=== PATIENT | female | born 1950 | race Caucasian/White ===

== ENCOUNTER → 2020-01-30 15:20 | Outpatient (BNVA) | payer OTHER, MEDICARE, SELFPAY | PROVIDERS: Visit Provider Registered Nurse | DX: I48.91 Unspecified atrial fibrillation (principal); Z79.899 Other long term (current) drug therapy | CPT/HCPCS: 84443 ==

== ENCOUNTER → 2020-02-06 10:17 | Outpatient (BNVA) | payer OTHER, SELFPAY | PROVIDERS: Visit Provider Registered Nurse | DX: I48.91 Unspecified atrial fibrillation (principal); Z01.818 Encounter for other preprocedural examination | CPT/HCPCS: 80053; 83735; 83880; 84439; 84443; 84481; 85025 ==

== ENCOUNTER → 2020-02-08 11:04 | Outpatient (BNVA) | payer MEDICARE, SELFPAY | PROVIDERS: Visit Provider Internal Medicine Cardiovascular Disease | DX: Z11.59 Encounter for screening for other viral diseases (principal); Z01.818 Encounter for other preprocedural examination | CPT/HCPCS: 87635 ==

== ENCOUNTER 2020-02-11 10:37 | Day surgery (SDC) | payer MEDICARE, SELFPAY ==
[2020-02-07 11:05] VITALS: BMI 26.6
--- NOTE | 2020-02-11 11:36 | ANES.PREANE2 ---
Pre-Anesthetic Assessment Pre-Anesthetic Assessment: Height/Weight: Height 1.65 m Weight 72.575 kg Preop Diagnosis: Atrial fibrillation Proposed Procedure: Operation Date: 02/11/20 12:00 Proposed Procedures p HILARIO 91484 I48.91(Not Applicable) - Melida Escobedo MD Familial anesthetic complications: None Was Beta Tatiana taken within 24 hours: Yes Last intake: Intake Last Liquid Date 02/11/20 Last Liquid Time 09:00 Last Solid Date 02/10/20 Last Solid Time 22:00 Social: Social History: No alcohol and No tobacco Exam: Pre-Anes Outpt Exam: alert, oriented x 3, clear to auscultation bilaterally and regular rate & rhythm Airway: Cervical ROM: WNL MP: 2 Dentition: Full CV/HEM: CV/HEM: Afib Comments: mitral valve prolapse Metabolic: Metabolic: Hyperlipidemia Anesthetic Plan: ASA status: 2 Anesthesia: MAC Risk of > 500 ml blood loss (7ml/kg in children): No Other Pertinent Information: former smoker PFSH Anesthesia PFSH: Medical History Anxiety Former smoker History of mitral valve prolapse Hyperlipidemia Restless leg syndrome Surgical History History of tonsillectomy Family History Grandmother Diabetes Father Heart disease Hyperlipidemia Hypertension Grandfather Cancer Social History Smoking and tobacco status: former smoker Quit status (tobacco): has quit using tobacco Year quit tobacco: 2006 Alcohol intake: never Adopted: No Caregiver/support person: No Lives independently: No Household members: spouse Housing: House Marital status: service: No Current occupational status: retired History of recent travel: No Sexually active: Yes Current gender identity: Female Data Anesthesia Cardiac Studies: No Data to Display
--- NOTE | 2020-02-11 11:50 | USCV_ITS ---
Eda Hanks Age: 69 Gender: F : 1950 Exam Date: 02/11/2020 12:08 Ordering Phys: Melida Escobedo MD ([email or web address]) Technologist: Tripp Armendariz [place] [facility] [place]ication: A-FIB, THROMBUS BP: 100 / 70 HR: 98 Rhythm: Sinus Technical Quality: Adequate MEASUREMENTS (Male / Female) Normal Values Medications Patient given IV sedation by anesthesia service, for details please refer to the anesthesia report. Complications None. Proc. Components HILARIO was performed at multiple levels. FINDINGS Left Ventricle Normal left ventricular cavity size. Normal left ventricular systolic function. Left ventricular ejection fraction is estimated at 65-70 %. No regional wall motion abnormalities. Right Ventricle Normal right ventricular size and systolic function. Right ventricular systolic pressure 50 mmHg. Right Atrium Mildly increased right atrial size. Left Atrium Moderately increased left atrial size. There is bowing of the interatrial septum to left. No evidence of left atrial thrombus. LA Appendage Normal left atrial appendage. Decreased flow velocities in the left atrial appendage. No thrombus visualized in the left atrial appendage. IA Septum Normal interatrial septum. No evidence of patent foramen ovale or atrial septal defect based on color Doppler as well as agitated saline (bubble) study. Mitral Valve Moderately thickened mitral valve with severe prolapse of P1 and P2 scallops (P2>P1) of posterior mitral valve leaflet. Ruptured chordae attached P2 scallop. Severe eccentric anteriorly directed mitral valve regurgitation. No mitral valve stenosis. Aortic Valve Mildly thickened trileaflet aortic valve. No aortic valve stenosis. No aortic valve regurgitation. Tricuspid Valve Structurally normal tricuspid valve. Mild to moderate tricuspid valve regurgitation. Pulmonic Valve Structurally normal pulmonic valve. Trace pulmonary valve regurgitation. Pericardium No pericardial effusion. Aorta Normal-sized aortic root. No evidence of aortic dilation aneurysm or dissection. Grade 2 atheroma noted in proximal descending aorta. CONCLUSIONS 1. Normal left ventricular cavity size. Normal left ventricular systolic function. Left ventricular ejection fraction is estimated at 65-70 %. No regional wall motion abnormalities. 2. Normal right ventricular size and systolic function. 3. Moderately increased left atrial size. 4. Moderately thickened mitral valve with severe prolapse of P1 and P2 scallops (P2>P1) of posterior mitral valve leaflet. Ruptured chordae attached to P2 scallop. Severe eccentric anteriorly directed mitral valve regurgitation. 5. Mild to moderate tricuspid valve regurgitation. 6. Moderate pulmonary hypertension with pulmonary artery pressure estimated at 50 mmHg. 7. No prior similar studies to compare. Melida Escobedo MD (Electronically Signed) Final Date: 15 February 2020 10:11 S
[2020-02-11] MEDS: sodium chloride 0.9% 1,000 ML 30 ML IV (11:53)
[2020-02-11 11:58] VITALS: BP 116/72; PULSE 98; RESP 18; TEMP 36.3; O2SAT 98
[2020-02-11 12:12] LABS: Anion Gap 15.8 (5-19); Blood Urea Nitrogen 21 mg/dL (8-23); Calcium 8.9 mg/dL (8.5-10.5); Carbon Dioxide 22 mmol/L (22-29); Chloride 100 mmol/L (98-107); Creatinine Clr Calc Pharmacy 65.3157; Glomerular Filtration Rate 70.9 mL/min (90-130); Glucose 116 mg/dL (65-115); Magnesium 2.4 mg/dL (1.7-2.3); Osmolality Calculated 282 mOsm/kg (285-295); Potassium 3.8 mmol/L (3.5-5.1); Sodium 134 mmol/L (136-145)
--- NOTE | 2020-02-11 13:02 | SUR.OPER ---
1254 Pt cardioverted using [address] Escobedo.
--- NOTE | 2020-02-11 13:04 | ECG_ITS ---
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 Measurements Intervals [place] Rate: 58 P: MN: -1 QRS: -37 QRSD: 100 T: 11 QT: 443 QTc: 437 Interpretive Statements SUPRAVENTRICULAR BRADYCARDIA MARKED LEFT AXIS DEVIATION [QRS AXIS < -30] SEPTAL MYOCARDIAL INFARCTION [40+ ms Q WAVE IN V1/V2], OF INDETERMINATE AGE No previous ECG available for comparison Electronically Signed On 02-11-2020 18:35:27 ENGINEERING AND SCIENTIFIC PROGRAMMER by Mian Rios M.D. [id number] f
--- NOTE | 2020-02-11 13:08 | W.PM.OPSUD ---
Surgery/Procedure H&P Update DATE OF PROCEDURE: February 11, 2020 DATE H&P PERFORMED: 01/31/20 PREOP DIAGNOSIS: Atrial fibrillation PLANNED PROCEDURE: Operation Date: 02/11/20 12:00 Proposed Procedures p HILARIO 26939 I48.91(Not Applicable) - Melida Escobedo MD with possible cardioversion Patient's history and physical reviewed. No changes in her history and physical exam since her last visit. ASA 2, airway 3. Plan to proceed with HILARIO with possible cardioversion.
--- NOTE | 2020-02-11 13:13 | PM.ACPR ---
Procedure/Consent Time out: Time Out Performed: Yes Consent: Consent for Procedure: Consent obtained from patient, Risks & Benefits reviewed and Agrees to proceed with procedure Procedure Narrative: HILARIO Procedure note Indication: Symptomatic atrial fibrillation Sedation: Propofol by anesthesia The patient was brought down to the outpatient surgery center. Procedure was explained to the patient in detail and informed consent was obtained. Timeout was called. After achieving adequate sedation, the probe was inserted on first attempt. No blood on the probe post procedure. Prelim report: Normal left ventricle size and systolic function. No left atrial or left atrial appendage mass or thrombus visualized. No ASD or PFO identified. Marked Posterior mitral leaflet prolapse with possible chordal rupture. Severe eccentric anteriorly directed mitral valve regurgitation. Full report to follow. Cardioversion procedure note. Indication: Symptomatic atrial fibrillation Anticoagulation: Eliquis Sedation: Propofol by anesthesia After time out was called patient received sedation. Pads were placed anteroposteriorly. [After ruling out left atrial/left atrial appendage thrombus, she received 150 J of synchronized biphasic shock ?1 with mormonism of normal sinus rhythm. Patient tolerated the procedure well. Recovery: Outpatient surgery unit Disposition: Patient to be discharged later today on current medications. Acute Procedures Epistaxis Control: Time out performed: Yes
[2020-02-11 13:17] VITALS: BP 82/51; PULSE 57; RESP 18; O2SAT 98
[2020-02-11 13:27] VITALS: BP 96/55; PULSE 62; RESP 18; O2SAT 95
--- NOTE | 2020-02-11 14:09 | ANE.PACU2 ---
Inpatient post-anesthesia follow up: Airway intact: Yes Vital signs: Temperature 97.3 F Pulse Rate 62 Respiratory Rate 18 Blood Pressure 96/55 Pulse Oximetry 95 Oxygen Delivery Me thod Room Air Oxygen Flow Rate 10 Fraction of Inspir ed Oxygen Hydration adequate: Yes Nausea and vomiting: No Pain level: 1 Mental status: Baseline
== END 2020-02-11 13:55 | disposition home or self-care (01) ==
PROVIDERS: PCP Registered Nurse; Visit Provider Internal Medicine Cardiovascular Disease
PROC: (CPT 93312; principal; 2020-02-11 12:00)
DX: I48.91 Unspecified atrial fibrillation (principal); I34.1 Nonrheumatic mitral (valve) prolapse; E78.5 Hyperlipidemia, unspecified; Z87.891 Personal history of nicotine dependence
CPT/HCPCS: 12345; 36415; 80048; 83735; 92960; 93005; 93312; 93320; 93325; J2704; J7030

== ENCOUNTER → 2020-02-29 12:22 | Outpatient (BNVA) | payer OTHER, SELFPAY | PROVIDERS: PCP Registered Nurse; Visit Provider Internal Medicine Cardiovascular Disease | DX: I48.91 Unspecified atrial fibrillation (principal); Z86.79 Personal history of other diseases of the circulatory system; E78.5 Hyperlipidemia, unspecified; I50.33 Acute on chronic diastolic (congestive) heart failure; I34.0 Nonrheumatic mitral (valve) insufficiency; I27.20 Pulmonary hypertension, unspecified; I34.1 Nonrheumatic mitral (valve) prolapse | CPT/HCPCS: 80053; 83735; 83880; 85025 ==

== ENCOUNTER 2020-03-25 05:48 | Day surgery (SDC) | payer MEDICARE, SELFPAY ==
[2020-03-25] VITALS (21 sets, daily range): BP systolic 95–134; BP diastolic 42–76; PULSE 52–60; RESP 17–18; TEMP 36.9; O2SAT 94–97; BMI 25.4
--- NOTE | 2020-03-25 06:00 | XACV_ITS ---
Ht: 165 cm Wt: 69 kg BSA: 1.79 m2 Gender: Female : 1950 Any Known Allergies: No known allergies Exam Priority: Routine Procedure(s): Procedure Description: Diagnostic procedure Procedure Description: Left Heart Catheterization Procedure Description: Right Heart Catheterization Procedure Description: Left ventriculography Procedure Description: O2 saturation Procedure Description: Coronary Angiography Diagnostic Cath Status: Elective Diagnostic Findings * No significant disease noted in the Left Main, LAD, Circumflex, or RCA coronary arteries. * Coronary angiography shows right dominance. * Left main artery: Left main artery arises from left coronary cusp. It has 10 to 20% stenosis in distal vessel. LAD: LAD arises from left main artery. It is a large sized vessel which gives rise to 2 diagonal branches. No significant disease is noted in LAD. Left circumflex artery: Left circumflex artery arises from left main artery. It gives rise to 2 OM branches. No significant disease is noted in circumflex system. Ramus intermedius: It is a small to medium sized vessel. Minor luminal irregularities are present. RCA: RCA arises from right coronary cusp. It has mild luminal irregularities. . * Right heart cath findings: RA: 18/18(17) millimeters of mercury RV: 59/8 (20) millimeters of mercury PCW: 20/29(21) millimeters of mercury. Prominent V wave is seen PA pressure: 54/25(36) millimeters of mercury PA sat: 56.1% Ao sat 90.4% Cardiac output 3 L/min by Jamie. * 2-3+ MR on ventriculogram. Conclusions 1. No significant disease noted in the Left Main, LAD, Circumflex, or RCA coronary arteries. 2. Normal left ventricular systolic function. Ejection fraction of 55%. 3. Elevated 4. right and left-sided cardiac pressures. 5. Mild mixed pulmonary hypertension. 6. 2-3+ MR on ventriculogram. Recommendations * Continue current medical management and risk factor modification. * Plan for mitral valve surgery. Interventional RX Recommendation: none Ventriculography Ejection Fraction: 55.0 % Pressures Phase:Rest AO : 112 / 66 ( 79 ) @ 1:43:00 AM 121 / 40 ( 67 ) @ 1:53:00 AM LV : 121 / 2 / @ 1:52:00 AM 108 / 10 / @ 1:53:00 AM RV : 59 / 8 / @ 1:34:00 AM PA : 54 / 25 ( 36 ) @ 1:35:00 AM RA : a wave = v wave = mean = 17 @ 1:33:00 AM O2 Content Phase:Rest PA : O2 Content O2: 56.1 @ 1:43:00 AM Saturations Phase:Rest PA : 56 @ 1:43:00 AM Clinical Evaluation EBL: 5mL-10mL Procedural Details Procedure Consent Obtained. Pre-Procedure Time Out. Identified patient by full name and date of as verbalized by the patient/guarantor. Does the consent match the physician's order: Yes. Accurate & Complete Informed Consent: Yes. Inpatient/Outpatient History & Physical on Chart: Yes. If H&P is completed, is and addenduem needed: No; If yes, is the addendum complete: N/A. Visualize and Verify Site with Patient/Guarantor: N/A. Relevant Radiology Images available: N/A. Pre-op teaching completed and patient verbalized understanding. The risks, benefits, and alternatives of sedation and/or procedure were discussed by physician. The patient agrees to continue. Procedure started. [facility] Clinical Fraility Score: 3: Managing Well. Handy Man Indications: Valvular Disease. Chest Pain Symptom Assessment: Non-anginal Chest Pain. Cardiovascular Instability: No. Correct patient, site and procedure confirmed by cath team. PERRLA. Strong, equal hand registered representative bilaterally. Lungs clear x 5 lobes. IV Site on Arrival: 20 gauge in the left anticubital. IV Fluids: 0.9% NaCl at KVO. 0 mL infused prior to concrete laborer. Pre Procedural Pulses: right dorsalis pedis was 1+. Pre Procedural Pulses: left dorsalis pedis was 2+. Pre Procedural Pulses: right posterior tibial was 1+. Pre Procedural Pulses: left posterior tibial was 2+. Pre Procedural Pulses: bilateral radial was 3+. bilateral groins was prepped with chloroprep then draped in the usual sterile fashion. right brachial was prepped with chloroprep then draped in the usual sterile fashion. right radial was prepped with chloroprep then draped in the usual sterile fashion. Baseline sample Acquired. HR: 63 BPM. A 20 gauge IV was started in the right anticubital using aseptic technique. Equipment: 6F - Radial. Cardiac Cath Pack. ACIST Manifold Kit Model BT 2000. Heparinized Saline (2 units/mL), 1000 mL bag. Physician arrived. Physician scrubbed in. Immediate Pre-Procedure Time Out. Correct Patient: Yes; Correct Procedure: Yes; Correct Site: Yes; Correct Patient Position: Yes; Correct Supplies: Yes; Dried Flammable Prep: Yes; Blood Products Available: N/A;. Wire inserted through IV catheter in right brachial vein. IV catheter removed over wire. Lidocaine 1% infiltrated to the right brachial. Elsie-Jose Miguel MON catheter inserted. Lidocaine 1% infiltrated to the right radial. Elsie-Jose Miguel out. Arterial access obtained. A 5 ecuadorean TIG catheter in over wire. Multiple views taken of left coronary artery. Catheter redirected to the RCA. Multiple views taken of right coronary artery. Catheter out. A 6 ecuadorean Angled Pig catheter in over wire. EDP Sample taken: LV 121/2,28; HR: 58 BPM; SpO2: 97%. LV gram performed in OLIVO @ 10 mL/second for a total of 30 mL. EDP Sample taken: LV 108/10,23; HR: 58 BPM; SpO2: 97%. Pullback taken: LV Off; AO Off; Mean: , Peak to Peak: , SEP: ; HR: 58 BPM; SpO2: 98%. Catheter out. Physician scrubbed out. A Manual Compression was successful obtaining hemostatsis at the Right Brachial Vein insertion site. A TR Band was successful obtaining hemostatsis at the Right Radial artery insertion site. TR band placed. Hemostasis obtained. Post Procedure: Pulses reassessed and unchanged. PERRLA. Strong, equal hand registered representative bilaterally. No VTE prophylaxis required. Medication's Wasted: Lidocaine 1% = 18 mL. Medication's Wasted: Nitro = 49.8 mg. Medication's Wasted: Heparin = 1000 units. Total IV fluids: 50 mL. Contrast type used: Omnipaque 300 mgI/mL, 500 mL bottle. Post-op diagnosis: non obstructive CAD, moderate to severe mitral regurg. Complications: none. Estimated blood loss: 5mL-10mL. Procedure completed. Patient transferred by stretcher to CPRU. Vital chart was stopped. Access Site Site: Right Brachial Vein Sheath Size: 6 Fr Hemostasis Method: Manual Compression Hemostasis Success: Successful Site: Right Radial artery Sheath Size: 6 Fr Hemostasis Method: TR Band Hemostasis Success: Successful Procedure Medications Start: 7:26 AM Stop: 7:26 AM Medication: Versed Amount: 1 mg Route: I.V. Start: 7:26 AM Stop: 7:26 AM Medication: Fentanyl Amount: 50 mcg Route: I.V. Start: 7:42 AM Stop: 7:42 AM Medication: Nitrogylcerin Amount: 200 mcg Route: I.A. Start: 7:43 AM Stop: 7:43 AM Medication: Heparin Amount: 5000 units Route: I.V. Start: 7:50 AM Stop: 7:50 AM Medication: Versed Amount: 1 mg Route: I.V. Start: 7:50 AM Stop: 7:50 AM Medication: Fentanyl Amount: 50 mcg Route: I.V. I, the attending physician, have reviewed and verified all procedure medications. Yes, all medications given per verbal order History/Risk Factors Hypertension: No Dyslipidemia: Yes Peripheral Arterial Disease (PAD): No Myocardial Infarction (NE): No Obesity: No Renal Disease: No Tobacco Use: Former Prior Interventions PCI: No CABG: No Valve Surgery: No Report Signatures Finalized by Michael Molina MD on 03/27/2020 11:26 AM
[2020-03-25 06:33] LABS: Basophils % 0.7 %; Eosinophils # 0.2 10^3/uL (0.0-0.8); Eosinophils % 3.2 %; Hematocrit 48.5 % (37.0-47.0); Hemoglobin 14.9 g/dL (11.5-15.3); Lymphocytes % 32.8 %; Mean Corpuscular HGB Conc 30.7 g/dL (30.0-36.0); Mean Corpuscular Hemoglobin 27.1 pg (28.0-34.0); Mean Corpuscular Volume 88.2 fL (81-99); Mean Platelet Volume 12.6 fL (7.4-10.4); Monocytes # 0.8 10^3/uL (0.2-0.9); Monocytes % 12.9 %; Neutrophils % 50.2 %; Nucleated Red Blood Cells % 0 %; Platelet Count 135 10^3/cmm (130-400); Red Cell Distribution Width 15.1 % (12.1-15.1)
[2020-03-25] MEDS: diphenhydrAMINE 50 mg Capsule PO (06:37)
[2020-03-25 06:47] LABS: INR 0.91 (0.8-1.2)
[2020-03-25 06:51] LABS: Anion Gap 15.3 (5-19); Blood Urea Nitrogen 21 mg/dL (8-23); Calcium 9.9 mg/dL (8.5-10.5); Carbon Dioxide 26 mmol/L (22-29); Chloride 101 mmol/L (98-107); Glomerular Filtration Rate 82.7 mL/min (90-130); Glucose 100 mg/dL (65-115); Osmolality Calculated 289 mOsm/kg (285-295); Potassium 4.3 mmol/L (3.5-5.1); Sodium 138 mmol/L (136-145)
[2020-03-25 06:52] LABS: SARS Covid-2 Antigen Negative (Negative)
--- NOTE | 2020-03-25 07:24 | W.PM.OPSUD ---
Surgery/Procedure H&P Update DATE OF PROCEDURE: March 25, 2020 DATE H&P PERFORMED: 02/29/20 H&P UPDATE INFORMATION: I have reviewed H&P completed within last 30 days, I have examined patient prior to procedure and No changes to prior documentation PREOP DIAGNOSIS: Pre op/ Severe mitral regurgitation PRIMARY INDICATION FOR PROCEDURE: Pre op cardiac catheterization/ Severe Mitral regurgitation PLANNED PROCEDURE: Operation Date: 03/25/20 07:00 Proposed Procedures p Left and Right Cardiac Catheterization 80765 I35.0(Bilateral) - Michael Molina M.D PATIENT REASSESSED PRIOR TO SEDATION, WITH NO CHANGE NOTED: Yes PHYSICAL EXAM: alert, oriented x 3 and clear to auscultation bilaterally AIRWAY EVAL/ANESTHESIA PLAN: ASA III, Risks, benefits & alternatives of sedation and/or procedure discussed and Patient agrees to continue as planned
--- NOTE | 2020-03-25 09:29 | SUR.PHASEII ---
POST OP FLUIDS RUNNING AT 75 ML/HR ORDERED.
--- NOTE | 2020-03-25 09:43 | PC.NURSE ---
Slight oozing noted at insertion site. Air reapplied to TR Band. No hematoma noted. Distal pulses present. Will continue with band deflation at 1000.
== END 2020-03-25 13:05 | disposition home or self-care (01) ==
PROVIDERS: Internal Medicine Cardiovascular Disease; PCP Registered Nurse; Visit Provider Internal Medicine
DX: I34.0 Nonrheumatic mitral (valve) insufficiency (principal); I27.20 Pulmonary hypertension, unspecified; Z87.891 Personal history of nicotine dependence; E78.5 Hyperlipidemia, unspecified; F41.9 Anxiety disorder, unspecified; I50.9 Heart failure, unspecified
CPT/HCPCS: 12345; 36415; 80048; 85025; 85610; 87426; 93460; C1751; C1769; C1887; C1894; J1644; J2250; J3010; J3490; J7030; Q0163; Q9967

== ENCOUNTER → 2020-04-15 10:20 | Outpatient (BNVA) | payer MEDICARE, SELFPAY | PROVIDERS: PCP Registered Nurse; Visit Provider Registered Nurse | DX: T81.49XA Infection following a procedure, other surgical site, initial encounter (principal); I48.91 Unspecified atrial fibrillation | CPT/HCPCS: 87070; 87077; 87184 ==

== ENCOUNTER → 2020-08-11 09:46 | Outpatient (BNVA) | payer MEDICARE, SELFPAY | PROVIDERS: PCP Registered Nurse; Visit Provider Internal Medicine Cardiovascular Disease | DX: Z01.89 Encounter for other specified special examinations (principal); R23.8 Other skin changes; Z95.0 Presence of cardiac pacemaker; I48.91 Unspecified atrial fibrillation; I27.20 Pulmonary hypertension, unspecified; E78.5 Hyperlipidemia, unspecified | CPT/HCPCS: 80053; 85025 ==

== ENCOUNTER → 2020-11-10 09:07 | Outpatient (BNVA) | payer MEDICARE, SELFPAY | PROVIDERS: PCP Registered Nurse; Visit Provider Registered Nurse | DX: R06.02 Shortness of breath (principal); R61 Generalized hyperhidrosis; E78.5 Hyperlipidemia, unspecified; Z95.3 Presence of xenogenic heart valve; I50.33 Acute on chronic diastolic (congestive) heart failure; M62.838 Other muscle spasm; Z98.890 Other specified postprocedural states; Z95.0 Presence of cardiac pacemaker | CPT/HCPCS: 84443; 85025 ==

== ENCOUNTER → 2021-04-01 09:44 | Outpatient (BNVA) | payer MEDICARE, SELFPAY | PROVIDERS: PCP Registered Nurse; Visit Provider Nurse Practitioner Family | DX: R00.2 Palpitations (principal); I48.0 Paroxysmal atrial fibrillation | CPT/HCPCS: 80053; 84443; 85025 ==

== ENCOUNTER → 2021-05-28 09:08 | Outpatient (BNVA) | payer MEDICARE, BC, SELFPAY | PROVIDERS: PCP Registered Nurse; Referring Provider Registered Nurse; Visit Provider Registered Nurse | DX: E78.5 Hyperlipidemia, unspecified (principal) | CPT/HCPCS: 80061; 83721 ==

== ENCOUNTER → 2021-09-09 09:45 | Outpatient (BNVA) | payer MEDICARE, SELFPAY | PROVIDERS: Visit Provider Internal Medicine Cardiovascular Disease | DX: Z45.010 Encounter for checking and testing of cardiac pacemaker pulse generator [battery] (principal) | CPT/HCPCS: 93280 ==

== ENCOUNTER → 2021-10-15 10:28 | Outpatient (BNVA) | payer MEDICARE, SELFPAY | PROVIDERS: PCP Family Medicine; Visit Provider Nurse Practitioner Family | DX: I50.33 Acute on chronic diastolic (congestive) heart failure (principal); Z95.0 Presence of cardiac pacemaker; Z95.2 Presence of prosthetic heart valve | CPT/HCPCS: 99213; 99214 ==

== ENCOUNTER → 2021-12-08 11:27 | Outpatient (BNVA) | payer MEDICARE, SELFPAY | PROVIDERS: PCP Family Medicine; Visit Provider Family Medicine | DX: G25.81 Restless legs syndrome (principal); E78.5 Hyperlipidemia, unspecified; F41.9 Anxiety disorder, unspecified; I48.91 Unspecified atrial fibrillation; M62.838 Other muscle spasm; I48.0 Paroxysmal atrial fibrillation; I50.33 Acute on chronic diastolic (congestive) heart failure; J30.1 Allergic rhinitis due to pollen; Z95.818 Presence of other cardiac implants and grafts | CPT/HCPCS: 80053; 80061 ==

== ENCOUNTER → 2021-12-18 09:57 | Outpatient (BNVA) | payer MEDICARE, SELFPAY | PROVIDERS: PCP Family Medicine; Visit Provider Internal Medicine Cardiovascular Disease | DX: Z45.010 Encounter for checking and testing of cardiac pacemaker pulse generator [battery] (principal) | CPT/HCPCS: 93280 ==

== ENCOUNTER → 2022-05-24 11:26 | Outpatient (BNVA) | payer MEDICARE, SELFPAY | PROVIDERS: PCP Family Medicine; Visit Provider Family Medicine | DX: F41.9 Anxiety disorder, unspecified (principal); E78.5 Hyperlipidemia, unspecified; G25.81 Restless legs syndrome; I48.0 Paroxysmal atrial fibrillation; M62.838 Other muscle spasm; I50.33 Acute on chronic diastolic (congestive) heart failure; I10 Essential (primary) hypertension; E78.2 Mixed hyperlipidemia | CPT/HCPCS: 80048; 83540; 83735 ==

== ENCOUNTER → 2022-08-12 11:41 | Outpatient (BNVA) | payer MEDICARE, SELFPAY | PROVIDERS: PCP Family Medicine; Visit Provider Family Medicine | DX: M54.12 Radiculopathy, cervical region (principal); G62.9 Polyneuropathy, unspecified; E78.2 Mixed hyperlipidemia; I50.33 Acute on chronic diastolic (congestive) heart failure | CPT/HCPCS: 72040; 80053; 80061; 82607; 82746; 84443; 85025 ==

== ENCOUNTER → 2022-09-14 15:07 | Outpatient (BNVA) | payer MEDICARE, SELFPAY | PROVIDERS: PCP Family Medicine; Visit Provider Internal Medicine Cardiovascular Disease | DX: Z45.010 Encounter for checking and testing of cardiac pacemaker pulse generator [battery] (principal) | CPT/HCPCS: 93296 ==

== ENCOUNTER 2022-10-07 06:00 | Outpatient (RCR) | payer MEDICARE, SELFPAY | END 2022-10-25 23:59 | disposition home or self-care (01) | LOC: MPT 06:00 | PROVIDERS: Visit Provider Family Medicine | DX: M54.2 Cervicalgia (principal); G89.29 Other chronic pain | CPT/HCPCS: 97110; 97140; 97162 ==

== ENCOUNTER 2022-10-26 06:00 | Outpatient (RCR) | payer MEDICARE, SELFPAY | END 2022-11-24 23:59 | disposition home or self-care (01) | LOC: MPT 06:00 | PROVIDERS: Visit Provider Family Medicine | DX: M54.2 Cervicalgia (principal); G89.29 Other chronic pain | CPT/HCPCS: 97110; 97140 ==

== ENCOUNTER → 2022-11-15 10:50 | Outpatient (BNVA) | payer MEDICARE, SELFPAY | PROVIDERS: Visit Provider Family Medicine | DX: M18.12 Unilateral primary osteoarthritis of first carpometacarpal joint, left hand (principal); F41.9 Anxiety disorder, unspecified; G25.81 Restless legs syndrome; M62.838 Other muscle spasm; M54.12 Radiculopathy, cervical region; I48.0 Paroxysmal atrial fibrillation; E78.2 Mixed hyperlipidemia | CPT/HCPCS: 73130 ==

== ENCOUNTER → 2023-01-03 10:42 | Outpatient (BNVA) | payer MEDICARE, SELFPAY | PROVIDERS: Visit Provider Nurse Practitioner Family | DX: M25.561 Pain in right knee (principal); I48.0 Paroxysmal atrial fibrillation; R23.2 Flushing; M70.51 Other bursitis of knee, right knee; R06.83 Snoring | CPT/HCPCS: 73562; 80053; 84439; 84443; 84480; 85025 ==

== ENCOUNTER → 2023-02-21 13:16 | Outpatient (BNVA) | payer MEDICARE, SELFPAY | PROVIDERS: PCP Family Medicine; Referring Provider Family Medicine; Visit Provider Specialist | DX: M17.11 Unilateral primary osteoarthritis, right knee | CPT/HCPCS: 73560; 73565; 99204 ==

== ENCOUNTER → 2023-02-28 10:31 | Outpatient (BNVA) | payer MEDICARE, SELFPAY | PROVIDERS: PCP Family Medicine; Visit Provider Internal Medicine Cardiovascular Disease | DX: I50.33 Acute on chronic diastolic (congestive) heart failure (principal); I48.91 Unspecified atrial fibrillation; I34.0 Nonrheumatic mitral (valve) insufficiency; I48.0 Paroxysmal atrial fibrillation; Z95.0 Presence of cardiac pacemaker; I27.20 Pulmonary hypertension, unspecified; Z87.891 Personal history of nicotine dependence | CPT/HCPCS: 99214 ==

== ENCOUNTER 2023-03-15 14:29 | Outpatient (CLI) | payer MEDICARE, SELFPAY ==
--- NOTE | 2023-03-15 15:00 | CT_ITS ---
WS: [id number] NONCONTRAST CT RIGHT KNEE TECHNIQUE: Noncontrast CT RIGHT knee with coronal and sagittal reformatted images. CLINICAL INFORMATION: M17.11 - Unilateral primary osteoarthritis, right knee COMPARISON: None. DLP: 481.[address] scans at [facility] use at least one of these dose optimization techniques: automated e xposure control; mA and/or kV adjustment per patient size (includes targeted exams where dose is matc hed to clinical indication); or iterative reconstruction. FINDINGS: Osteopenia. Mild to moderate tricompartment arthritis RIGHT knee. Hypertrophic patella. Mild to moder ate degenerative narrowing medial and lateral joint compartments. Normal fibula head. No acute fractu res. Normal tibial plateau. No tibial plateau fractures. Normal femoral condyles. Small suprapatellar effusion. Moderate narrowing of the patellofemoral articulation. Normal soft tissues. Normal poplite al fossa. Tiny popliteal cyst. IMPRESSION: 1. Mild to moderate tricompartment arthritis RIGHT knee. 2. No acute fractures. 3. Small suprasellar effusion. 4. Small lobulated popliteal cyst. 5. Osteopenia. 6. No other suspicious findings.
== END 2023-03-15 14:30 | disposition home or self-care (01) ==
LOC: RAD 14:29
PROVIDERS: PCP Family Medicine; Visit Provider Specialist
DX: M17.11 Unilateral primary osteoarthritis, right knee (principal); M71.21 Synovial cyst of popliteal space [Baker], right knee; M85.861 Other specified disorders of bone density and structure, right lower leg; M25.461 Effusion, right knee
CPT/HCPCS: 73700

== ENCOUNTER 2023-03-29 10:41 | Outpatient (CLI) | payer MEDICARE, SELFPAY ==
--- NOTE | 2023-03-29 11:00 | USCV_ITS ---
Eda Hanks Age: 72 Gender: F : 1950 Exam Date: 03/29/2023 11:32 Ordering Phys: Melida Escobedo MD ([email or web address]) Technologist: ROOSEVELT Exam Location: [facility] – [place] Indication: Prosthetic MV, SOB BP: 128 / 84 HR: 82 Rhythm: Other Technical Quality: Adequate MEASUREMENTS (Male / Female) Normal Values 2D ECHO LV Diastolic Diameter PLAX 3.5 cm 4.2 - 5.9 / 3.9 - 5.3 cm LV Systolic Diameter PLAX 2.0 cm IVS Diastolic Thickness 1.1 cm 0.6 - 1.0 / 0.6 - 0.9 cm IVS Systolic Thickness 1.3 cm LVPW Diastolic Thickness 0.8 cm 0.6 - 1.0 / 0.6 - 0.9 cm LVPW Systolic Thickness 1.3 cm LVOT Diameter 2.0 cm LV Ejection Fraction 2D Teich 73.3 % LV Ejection Fraction MOD 2C 72.3 % LV Ejection Fraction 2C AL 73.4 % LA Diameter 3.4 cm LA Width 3.8 cm LA Height 5.1 cm RA Width 4.2 cm RA Height 3.2 cm Aorta at Sinotubular Diameter 2.8 cm IVC Diameter 1.3 cm M-MODE Aortic Annulus Diameter 2.4 cm LA Ao Ratio MM 1.5 DOPPLER AV Peak Velocity 149.0 cm/s LVOT Peak Velocity 152.0 cm/s AV Area Cont Eq vti 3.0 cm squared AV Area Cont Eq pk 3.2 cm squared MV Peak Velocity 136.0 cm/s MV Area PHT 2.4 cm squared Mitral E to A Ratio 0.6 MV E' Velocity 46.5 cm/s Mitral E to MV E' Ratio 7.7 Mitral E to LV E' Lateral Ratio 10.4 Mitral E to LV E' Septal Ratio 6.2 TR Peak Velocity 110.5 cm/s TR Peak Gradient 4.9 mmHg Right Atrial Pressure 5.0 mmHg Pulmonary Artery Systolic Pressu 9.9 mmHg PV Peak Velocity 89.0 cm/s RV Acceleration Time 0.1 s RV Ejection Time 0.3 s RV AcT/ET 0.5 FINDINGS Left Ventricle Normal left ventricular size and systolic function, EF 60 %. Mild left ventricular hypertrophy. No regional wall motion abnormalities. Grade I/IV diastolic dysfunction (abnormal relaxation filling pattern), normal to mildly elevated filling pressures. Right Ventricle The right ventricle is normal in size and function. Right Atrium The right atrium is normal in size. Left Atrium Patient with normal size Mitral Valve The bioprosthetic valve in the mitral position appears to be well-seated. The mitral leaflets could not visualize well. No mitral valve area was calculated to be 2.5 cm squared Aortic Valve Could not be visualized well. The valve appears to be thickened. The peak velocity across the aortic valve is 1.4 July 9 was 1.5 m/s with a peak gradient of 9 and a mean gradient of 5 mmHg Tricuspid Valve No gross abnormalities noted Pulmonic Valve Pulmonic valve not well visualized. Pericardium Normal pericardium without effusion. Aorta Normal aortic annulus size. IVC Normal inferior vena cava. CONCLUSIONS Normal left ventricular size and systolic function, EF 60 %. Mild left ventricular hypertrophy. No regional wall motion abnormalities. Grade I/IV diastolic dysfunction (abnormal relaxation filling pattern), normal to mildly elevated filling pressures. The bioprosthetic valve in the mitral position appears to be well-seated. The mitral leaflets could not visualize well. Mitral valve area is calculated to be 2.5 cm squared There is no pericardial effusion. There are no intracardiac masses. No similar previous studies are available for comparison Dr Mian Rios MD [facility] (Electronically Signed) Final Date: 01 April 2023 19:14 S
== END 2023-03-29 10:42 | disposition home or self-care (01) ==
LOC: RAD 10:41
PROVIDERS: PCP Family Medicine; Visit Provider Internal Medicine Cardiovascular Disease
DX: I48.91 Unspecified atrial fibrillation (principal); I34.0 Nonrheumatic mitral (valve) insufficiency; R06.02 Shortness of breath; Z95.2 Presence of prosthetic heart valve; I51.89 Other ill-defined heart diseases
CPT/HCPCS: 93306

== ENCOUNTER → 2023-04-06 13:54 | Outpatient (BNVA) | payer MEDICARE, SELFPAY | PROVIDERS: PCP Family Medicine; Visit Provider Specialist | DX: M17.11 Unilateral primary osteoarthritis, right knee (principal) | CPT/HCPCS: 99214 ==

== ENCOUNTER → 2023-04-07 10:28 | Outpatient (BNVA) | payer MEDICARE, SELFPAY | PROVIDERS: PCP Family Medicine; Visit Provider Family Medicine | DX: B37.2 Candidiasis of skin and nail (principal); E03.9 Hypothyroidism, unspecified | CPT/HCPCS: 84439; 84443; 84481 ==

== ENCOUNTER → 2023-06-15 23:20 | Outpatient (BNVA) | payer MEDICARE, SELFPAY | PROVIDERS: PCP Family Medicine; Visit Provider Internal Medicine Cardiovascular Disease | DX: Z45.010 Encounter for checking and testing of cardiac pacemaker pulse generator [battery] (principal) | CPT/HCPCS: 93296 ==

== ENCOUNTER → 2023-07-25 10:20 | Outpatient (BNVA) | payer MEDICARE, SELFPAY | PROVIDERS: PCP Family Medicine; Visit Provider Nurse Practitioner Family | DX: I48.0 Paroxysmal atrial fibrillation (principal); Z95.0 Presence of cardiac pacemaker; I50.33 Acute on chronic diastolic (congestive) heart failure | CPT/HCPCS: 99214 ==

== ENCOUNTER → 2023-07-27 08:45 | Outpatient (BNVA) | payer MEDICARE, SELFPAY | PROVIDERS: PCP Family Medicine; Visit Provider Family Medicine | DX: G47.33 Obstructive sleep apnea (adult) (pediatric) (principal); G47.10 Hypersomnia, unspecified; R06.81 Apnea, not elsewhere classified; I50.33 Acute on chronic diastolic (congestive) heart failure; I48.0 Paroxysmal atrial fibrillation; M62.838 Other muscle spasm; G25.81 Restless legs syndrome; E03.9 Hypothyroidism, unspecified; F41.9 Anxiety disorder, unspecified; E78.2 Mixed hyperlipidemia | CPT/HCPCS: 80048; 80061; 83721; 84439; 84443; 84481 ==

== ENCOUNTER 2023-09-19 11:30 | Outpatient (CLI) | payer MEDICARE, SELFPAY | END 2023-09-19 11:31 | disposition home or self-care (01) | LOC: SLEEP 09-20 09:07 | PROVIDERS: PCP Family Medicine; Visit Provider Family Medicine | DX: G47.33 Obstructive sleep apnea (adult) (pediatric) (principal); I50.33 Acute on chronic diastolic (congestive) heart failure; I48.0 Paroxysmal atrial fibrillation | CPT/HCPCS: G0399 ==

== ENCOUNTER → 2023-09-21 08:53 | Outpatient (BNVA) | payer MEDICARE, SELFPAY | PROVIDERS: PCP Family Medicine; Visit Provider Internal Medicine Cardiovascular Disease | DX: Z45.010 Encounter for checking and testing of cardiac pacemaker pulse generator [battery] (principal) | CPT/HCPCS: 93296 ==

== ENCOUNTER → 2023-12-26 09:51 | Outpatient (BNVA) | payer MEDICARE, SELFPAY | PROVIDERS: PCP Family Medicine; Visit Provider Family Medicine | DX: I50.33 Acute on chronic diastolic (congestive) heart failure (principal); E78.2 Mixed hyperlipidemia; E03.9 Hypothyroidism, unspecified | CPT/HCPCS: 80053; 80061; 84439; 84443; 84481 ==

== ENCOUNTER → 2024-01-24 09:54 | Outpatient (BNVA) | payer MEDICARE, SELFPAY | PROVIDERS: PCP Family Medicine; Visit Provider Internal Medicine Cardiovascular Disease | DX: I48.0 Paroxysmal atrial fibrillation (principal); I50.33 Acute on chronic diastolic (congestive) heart failure; E78.2 Mixed hyperlipidemia; Z95.0 Presence of cardiac pacemaker; Z95.2 Presence of prosthetic heart valve; Z98.890 Other specified postprocedural states; R03.0 Elevated blood-pressure reading, without diagnosis of hypertension; Z79.82 Long term (current) use of aspirin | CPT/HCPCS: 99215 ==

== ENCOUNTER → 2024-05-18 13:06 | Outpatient (BNVA) | payer MEDICARE, SELFPAY | PROVIDERS: PCP Family Medicine; Visit Provider Nurse Practitioner | DX: R68.89 Other general symptoms and signs (principal) | CPT/HCPCS: 87426 ==

== ENCOUNTER → 2024-06-13 09:34 | Outpatient (BNVA) | payer MEDICARE, SELFPAY | PROVIDERS: PCP Family Medicine; Visit Provider Internal Medicine Cardiovascular Disease | DX: Z45.018 Encounter for adjustment and management of other part of cardiac pacemaker (principal) | CPT/HCPCS: 93296 ==

== ENCOUNTER → 2024-06-25 11:10 | Outpatient (BNVA) | payer MEDICARE, SELFPAY | PROVIDERS: PCP Family Medicine; Visit Provider Family Medicine | DX: M62.838 Other muscle spasm (principal); E03.9 Hypothyroidism, unspecified; F41.9 Anxiety disorder, unspecified; I50.33 Acute on chronic diastolic (congestive) heart failure; I50.9 Heart failure, unspecified; G25.81 Restless legs syndrome; R53.83 Other fatigue; R03.0 Elevated blood-pressure reading, without diagnosis of hypertension; W19.XXXA Unspecified fall, initial encounter; Y92.009 Unspecified place in unspecified non-institutional (private) residence as the place of occurrence of the external cause; E78.2 Mixed hyperlipidemia | CPT/HCPCS: 80053; 82728; 84439; 84443; 84481 ==

== ENCOUNTER → 2024-06-30 09:58 | Outpatient (BNVA) | payer MEDICARE, SELFPAY | PROVIDERS: PCP Family Medicine; Visit Provider Family Medicine | DX: R39.9 Unspecified symptoms and signs involving the genitourinary system (principal) | CPT/HCPCS: 81000 ==

== ENCOUNTER → 2024-09-10 11:00 | Outpatient (BNVA) | payer MEDICARE, SELFPAY | PROVIDERS: PCP Family Medicine; Visit Provider Family Medicine | DX: E03.9 Hypothyroidism, unspecified (principal) | CPT/HCPCS: 84439; 84443; 84481 ==

== ENCOUNTER → 2024-10-17 09:31 | Outpatient (BNVA) | payer MEDICARE, SELFPAY | PROVIDERS: PCP Family Medicine; Visit Provider Internal Medicine Cardiovascular Disease | DX: Z45.018 Encounter for adjustment and management of other part of cardiac pacemaker (principal) | CPT/HCPCS: 93296 ==

== ENCOUNTER 2025-01-25 12:01 | Emergency (ER) | payer MEDICARE, SELFPAY ==
[2025-01-25 12:04] VITALS: BP 159/95; PULSE 73; RESP 16; TEMP 36.6; O2SAT 97; BMI 28.9
--- NOTE | 2025-01-25 12:06 | ECG_ITS ---
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
--- OUTSIDE RECORDS SUMMARY | 2025-01-25 12:08 | XMS_ITS | Clinical Summary ---
Author Organization [facility] Address [address] [place] [address] Phone Care Team Providers Care Sizing Sprayer Name Role Phone Non-Staff, Physician Primary Care Provider Unava ilable Allergies Active Allergy Reactions Criticality Noted Date Comments Mold Other (See Comments) 09/01/2021 Nasal congestion watery eyes Medications rOPINIRole (REQUIP) 0.25 mg tabletIndicatio ns:Restless legs syndrome (RLS) Take 1 Tablet (0.25 mg) by mouth daily at bedtime. 90 Tablet 3 11/26/2019 Active metoprolol tartrate (LOPRESSOR) 25 mg tablet Take 12.5 mg by mouth daily. 02/08/2020 Active cetirizine (ZyrTEC) 10 mg tabletIndicatio ns:Nasal congestion Take 1 Tablet (10 mg) by mouth daily. 30 Tablet 1 01/07/2020 Active venlafaxine (EFFEXOR XR) 75 mg Extended Release 24 hour capsule TAKE 1 CAPSULE DAILY (LAST REFILL TILL APPOINTMENT) 30 Capsule 3 01/12/2021 Active cyclobenzaprine (FLEXERIL) 10 mg tablet Take 10 mg by mouth late in the day. Active Immunizations Immunization Administration Dates Next Due (APX)(12 YR UP) COVID-19 VACCINE - EMERGENCY USE AUTHORIZATION, MRNA, [id number](PF) 30 MCG/0.3 ML IM SUSP 07/25/2020,2020 Social History Tobacco Use Types Packs/Day Years Used Date Smoking Tobacco: Former Cigarettes Q uit: 03/27/2007 Smokeless Tobacco: Never Comments:Quit smokin.5 p acks/day hx. 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 Gender Identity Not on file Sexual Orientation Not on file Last Filed Vital Signs Vital Sign Reading Time Taken Comments Blood Pressure 120/66 09/01/2021 6:17 PM CDT Pulse 84 09/01/2021 5:45 PM CDT Temperature 36.9 C (98.4 F) 09/01/2021 6:17 PM CDT Respiratory Rate 16 09/01/2021 6:17 PM CDT Oxygen Saturation 99% 09/01/2021 6:17 PM CDT Inhaled Oxygen Concentration - - Weight 79.6 kg (175 lb 6.4 oz) 09/01/2021 4:48 P M CDT Height 165.1 cm (5' 5 ) 09/01/2021 4:48 PM CDT Body Mass Index 29.19 09/01/2021 4:48 PM CDT Plan of Treatment Health Maintenance Due Date Last Done Comments DTAP/TDAP/TD VACCINES (1 - Tdap) 1968 COLORECTAL SCREENING 1994 Colorectal Cancer Screening 1994 FIT-DNA Q 3 years 1994 FIT/FOBT Q 1 year 1994 Flex Sig/CT Colonography Q 5 years 1994 PNEUMOCOCCAL VACCINE 50+ YEA RS (1 of 1 - PCV) 07/05/1999 ZOSTER VACCINE (1 of 2) 07/05/1999 OSTEOPOROSIS SCREENING 03/28/2018 03/28/2013 RSV VACCINE (60+ or ) (1 - 1-dose 75+ series) 2024 INFLUENZA VACCINE (#1) 2024 COVID-19 Vaccine ( - season) 2024, 2020 Insurance [employer] PPO [place] Care Teams Sizing Sprayer Relationship Specialty Start Date End Date Non-Staff, Physician NO ADDRESS ON FILE PCP - General 05/14/21
--- NOTE | 2025-01-25 12:17 | ED_ITS ---
HPI - Arrhythmia/Palpitations General: Chief Complaint: Arrhythmia/Palpitations Stated Complaint: Afib like symtoms Time Seen by Provider: 01/25/25 12:06 Source: patient and family Mode of arrival: ambulatory Limitations: no limitations History of Present Illness: Patient is a very nice 74-year-old female with a history of mitral valve prolapse/mitral valve replacement, tricuspid valve annuloplasty, intermittent atrial fibrillation, pacemaker (placed after her mitral valve repair due to symptomatic bradycardia), HLD, RLS, CHF, former smoker here for concerns of atrial fibrillation. Patient states she has a home health nurse that does an annual in-home assessment and states today when they auscultated her chest, they told her she was in atrial fibrillation and recommended she come to the [facility] department. Patient tells me she has a longstanding history of atrial fibrillation. She states that her public information coordinator is not very happy with me as she has refused Eliquis. Patient tells me she is not having any shortness of breath currently. She does get short of breath with exertion but states this has been going on for several weeks/months. She has no physical complaints at this time and states she only came here at the recommendation of the home health nurse. She does have a follow-up appointment with her public information coordinator next week. MD complaint: atrial fibrillation Onset (ago): unknown Duration: intermittent Severity: mild Context: occurred during exertion Arrhythmia history: atrial fibrillation and pacemaker Associated symptoms: Deny nausea, pre-syncope, syncope or vomiting Related Data Home Medications ?Medication ?Instructions ?Recorded ?Confirmed aspirin 81 mg tablet,delayed 81 mg PO DAILY 08/17/22 0 09/10/24 release loratadine 10 mg tablet 10 mg PO DAILY PRN 02/21/23 09/10/24 Turmeric Curcumin PO 01/24/24 09/10/24 omega-3 fatty acids 1,000 mg 1,000 mg PO BID 06/25/24 09/10/24 capsule Previous Rx's ?Medication ?Instructions ?Recorded miscellaneous medical supply See Rx Instructions misce llaneous 10/17/23 .COMPLEX #1 ea pramipexole 0.25 mg tablet See Rx Instructions .Route 05/14/24 .COMPLEX #180 tabs cyclobenzaprine 10 mg tablet 10 mg PO TID PRN muscle s pasm 90 06/25/24 days #270 tabs gabapentin 100 mg capsule 200 mg (2 x 100 mg) PO DAILY pain 06/25/24 90 days #180 caps levothyroxine 50 mcg tablet See Rx Instructions .Route 06/25/24 Held on 09/10/24. .COMPLEX #90 tabs Instructions: pt choice venlafaxine 150 mg 150 mg PO DAILY 90 days #90 caps 06/25/24 capsule,extended release 24 hr apixaban 5 mg tablet (Eliquis) 5 mg PO BID #60 tabs Allergies Allergy/AdvReac Type Severity Reaction Status Date / Time mold Allergy Mild ALGY-Nasal Verified 09/10/24 10:27 Discharge Review of Systems Const: Denies: fever(s), chills, body aches, fatigue or malaise Card: Reports: irregular heart rhythm and dyspnea on exertion; Denies: chest pain, edema, swelling of feet/ankles, lightheadedness, syncope, pre-syncope, orthopnea, leg pain with exertion or acrocyanosis Resp: Denies: dyspnea or chest congestion GI: Denies: abdominal pain, nausea or vomiting Musc: Denies: extremity swelling PFSH ED PFSH: Medical History Levothyroxine sodium toxicity History of COVID-19 Pacemaker Dual chamber pacemaker 04/09/2020 @ [facility] Mitral valve regurgitation CHF (congestive heart failure), NYHA class III Hyperlipidemia Restless leg syndrome Anxiety Former smoker History of mitral valve prolapse Surgical History H/O tricuspid valve repair 03/31/2020 at [facility] History of mitral valve replacement with bioprosthetic valve 03/31/2020 @ [facility] for mitral valve prolapse with severe mitral regurgitation History of tonsillectomy Family History Grandmother Diabetes Father Heart disease Hyperlipidemia Hypertension Grandfather Cancer Social History Smoking and tobacco/nicotine status: never used tobacco/nicotine Quit status (tobacco/nicotine): has quit using Year quit tobacco: 2006 Alcohol intake: never Substance/Drug Use: never Adopted: No Caregiver/support person: No Lives independently: No Household members: spouse Housing: House Marital status: service: No Current occupational status: retired Sexually active: Yes Do you think of yourself as: Straight/Heterosexual Current gender identity: Female Female Reproductive History: Spontaneous abortions: No Physical Exam Const: COMMON NORMALS: no acute distress, average body habitus, patient oriented x3, no limitations, healthy appearing, alert and well nourished GENERAL APPEARANCE: cooperative ORIENTATION/CONSCIOUSNESS: Yes awake, Yes oriented to person, Yes oriented to place and Yes oriented to time HENMT: COMMON NORMALS: normocephalic and atraumatic HEAD & SCALP: normal to inspection, normocephalic and atraumatic Neck/C-Spine: COMMON NORMALS: full ROM, no lymphadenopathy, supple, no meningeal signs and no JVD Chest: COMMONS NORMALS: normal inspection of the chest and normal palpation of entire chest wall Resp: COMMON NORMALS: normal respiratory effort and clear to auscultation bilaterally AUSCULTATION: clear to auscultation bilaterally Cardio: COMMON NORMALS: no JVD and regular rate RATE: regular rate RHYTHM: abnormal rhythm irregularly irregular GI: COMMON NORMALS: Normal to inspection, nondistended, normoactive bowel sounds present, Soft to palpation, non-tender, No hepatosplenomegaly present and no masses PALPATION: Yes Soft to palpation and Yes No hepatosplenomegaly present : COMMON NORMALS: Yes no CVA tenderness BLADDER/KIDNEY EXAM: Yes no CVA tenderness Back/Pelvis: COMMON NORMALS: no CVA tenderness and thoracic and lumbar spine normal to inspection Extremity: COMMON NORMALS: normal to inspection, capillary refill normal, no clubbing, cyanosis or edema, no calf tenderness and no pedal edema GENERAL: Yes normal exam except as noted Neuro: COMMON NORMALS: patient oriented x3 SENSORIUM/ORIENTATION: Yes alert, Yes oriented to person, Yes oriented to place and Yes oriented to time MENINGEAL SIGNS: Yes no meningeal signs Skin: COMMON NORMALS: no rashes or lesions noted GENERAL SKIN EXAM: no rashes or lesions noted Course Vital Signs: Vital signs: Vital Signs Temperature 97.9 F 01/25/25 12:04 Pulse Rate 95 01/25/25 13:32 Respiratory Rate 16 01/25/25 13:32 Blood Pressure 133/88 01/25/25 13:32 Pulse Oximetry 92 01/25/25 13:32 Oxygen Delivery Me thod Room Air 01/25/25 13:16 MDM - Arrhythmia/Palpitations Medical Decision Making Patient's pacemaker was recently interrogated and signed off by her public information coordinator Dr. Rios yesterday. It appears she has been in atrial fibrillation over the past 24 hours. Patient has no physical complaints at this time and is only here at the recommendation of the home health nurse. Rate is controlled. Looking at previous documentation, she has had paroxysmal atrial fibrillation for years. She is agreeable to start Eliquis today. CXR showing mild cardiac enlargement. No previous films on file for comparison. I feel patient is stable for discharge from the emergency department with plan to follow-up with her public information coordinator next week as scheduled. Differential Diagnosis Likely artial fibrillation Medical Records I reviewed the patient's medical records. Lab Data Radiology Impressions Chest X-Ray 01/25/25 12:22 IMPRESSION: 1. Mild cardiac enlargement. No acute finding. All radiology interpretation(s) finalized by discharge Discharge Plan Discharge Patient Disposition: Home Clinical Impression: Atrial fibrillation Qualifiers: Atrial fibrillation type: paroxysmal Qualified Code(s): I48.0 - Paroxysmal atrial fibrillation Condition: Stable Prescriptions: New Eliquis 5 mg tablet 5 mg PO BID Qty: 60 0RF No Action loratadine 10 mg tablet 10 mg PO DAILY PRN aspirin 81 mg tablet,delayed release (DR/EC) 81 mg PO DAILY Turmeric Curcumin PO cyclobenzaprine 10 mg tablet 10 mg PO TID PRN (Reason: muscle spasm) 90 Days Qty: 270 2RF levothyroxine 50 mcg tablet See Rx Instructions .ROUTE .COMPLEX Qty: 90 2RF Dose Instruction: TAKE 1 TABLET BY MOUTH ONCE DAILY Rx Instructions: TAKE 1 TABLET BY MOUTH ONCE DAILY venlafaxine 150 mg capsule,extended release 24hr 150 mg PO DAILY 90 Days Qty: 90 2RF gabapentin 100 mg capsule 200 mg PO DAILY 90 Days Qty: 180 2RF omega-3 fatty acids 1,000 mg capsule 1,000 mg PO BID miscellaneous medical supply Misc See Rx Instructions miscellaneous .COMPLEX Qty: 1 0RF Rx Instructions: Auto-titrating CPAP machine with supplies as directed; pramipexole 0.25 mg tablet See Rx Instructions .ROUTE .COMPLEX Qty: 180 3RF Dose Instruction: TAKE 1 TABLET BY MOUTH TWICE DAILY Rx Instructions: TAKE 1 TABLET BY MOUTH TWICE DAILY Discharge Orders: Discharge ED (Routine); Ordered 01/25/25 Ordered By: Elizabeth Evans Referrals: Bernie Jose MD [Primary Care Provider, Family Practice] Patient Instructions: Atrial Fibrillation, Patient Portal & Kaia Instructions Activity Restrictions/Additional Instructions: As we discussed, please follow-up with your public information coordinator as scheduled next week. You are agreeable to start back on your Eliquis for treatment of your atrial fibrillation. You may return to the emergency department for onset of severe chest pain, shortness of breath, difficulty breathing, or any other concerns you may have. Print Language: Danish Coding Level of Care Code ED Chip Bin Conveyor Tender for Irma Fermin
--- NOTE | 2025-01-25 12:22 | XR_ITS ---
WS: [id number] Exam: XR chest 1V portable [id number] Date/Time of Exam: 01/25/2025 12:35 PM Reason For Exam: sob with exertion No priors. The heart is enlarged. The lungs are clear and fully expanded. No pleural effusions. Signs of previous cardiac surgery and valve replacement. Permanent cardiac pacer seen over the LEFT chest. Normal bony structures. XR/XR chest 1V portable [id number] IMPRESSION: 1. Mild cardiac enlargement. No acute finding.
[2025-01-25 12:24] VITALS: BP 159/95; PULSE 80; RESP 17; O2SAT 97
[2025-01-25 12:48] VITALS: BP 127/75; PULSE 84; RESP 17; O2SAT 99
[2025-01-25 13:16] VITALS: BP 133/88; PULSE 81; RESP 16; O2SAT 97
[2025-01-25 13:32] VITALS: BP 133/88; PULSE 95; RESP 16; O2SAT 92
== END 2025-01-25 13:33 | disposition home or self-care (01) ==
PROVIDERS: Emergency Provider Physician Assistant; PCP Family Medicine
DX: I48.0 Paroxysmal atrial fibrillation (principal); Z87.891 Personal history of nicotine dependence; E78.5 Hyperlipidemia, unspecified; Z95.0 Presence of cardiac pacemaker; I50.9 Heart failure, unspecified
CPT/HCPCS: 71045; 93005; 99284

== ENCOUNTER → 2025-01-30 15:22 | Outpatient (BNVA) | payer MEDICARE, SELFPAY | PROVIDERS: PCP Family Medicine; Visit Provider Internal Medicine Cardiovascular Disease | DX: I50.32 Chronic diastolic (congestive) heart failure (principal); R03.0 Elevated blood-pressure reading, without diagnosis of hypertension; I48.0 Paroxysmal atrial fibrillation; Z79.01 Long term (current) use of anticoagulants; Z79.82 Long term (current) use of aspirin; E03.9 Hypothyroidism, unspecified; G47.33 Obstructive sleep apnea (adult) (pediatric); Z99.89 Dependence on other enabling machines and devices; E78.2 Mixed hyperlipidemia; Z95.2 Presence of prosthetic heart valve; Z95.0 Presence of cardiac pacemaker; Z98.890 Other specified postprocedural states; Z87.891 Personal history of nicotine dependence | CPT/HCPCS: 99214 ==

== ENCOUNTER 2025-02-28 09:39 | Outpatient (CLI) | payer MEDICARE, SELFPAY ==
--- NOTE | 2025-02-28 06:15 | USCV_ITS ---
Eda Hanks Age: 74 Gender: F : 1950 Exam Date: 02/28/2025 10:04 Ordering Phys: Bernie Jose MD Technologist: KATJA Exam Location: [facility] – [place] Indication: CHF. AFIB BP: 148 / 78 HR: 73 Rhythm: Sinus Technical Quality: Adequate MEASUREMENTS (Male / Female) Normal Values 2D ECHO LV Diastolic Diameter PLAX 4.9 cm 4.2 - 5.9 / 3.9 - 5.3 cm IVS Diastolic Thickness 0.9 cm 0.6 - 1.0 / 0.6 - 0.9 cm IVS Systolic Thickness 0.9 cm LVPW Diastolic Thickness 1.0 cm 0.6 - 1.0 / 0.6 - 0.9 cm LVPW Systolic Thickness 0.8 cm LVOT Diameter 2.0 cm LV Ejection Fraction 2D Teich 15.0 % LV Ejection Fraction MOD 4C 51.5 % LV Ejection Fraction MOD 2C 56.5 % LV Ejection Fraction 2C AL 56.0 % LA Diameter 4.7 cm RA Systolic Volume 4C AL 30.0 ml RA Systolic Volume 4C MOD 28.3 ml LA Sys Volume AL 78.3 cm cubed LA Sys Volume Index AL 40.1 cm cubed/m squared Aorta at Sinotubular Diameter 3.1 cm M-MODE LA Ao Ratio MM 2.1 AV Cusp Separation MM 1.0 cm DOPPLER AV Peak Velocity 123.0 cm/s LVOT Peak Velocity 109.0 cm/s AV Area Cont Eq vti 2.7 cm squared AV Area Cont Eq pk 2.8 cm squared MV Peak Velocity 221.0 cm/s MV Area PHT 5.3 cm squared Mitral E to A Ratio 1.9 TR Peak Velocity 91.0 cm/s TR Peak Gradient 3.3 mmHg TV Peak E Velocity 98.0 cm/s PV Peak Velocity 72.0 cm/s FINDINGS Left Ventricle Normal left ventricular size and systolic function, EF 56.5%.no regional wall motion abnormalities. . Right Ventricle Normal right ventricular size and systolic function. Right Atrium Normal right atrial size. Left Atrium Moderately increased left atrial size. IA Septum Normal interatrial septum. Mitral Valve Bioprosthetic valve in the mitral position appears to be well- seated. Peak gradient across the valve was 20 mmHg with a mean gradient of 6 mmHg Aortic Valve Thickened aortic valve. Trace to mild aortic valve regurgitation. Tricuspid Valve No gross abnormalities noted Pulmonic Valve No gross abnormalities noted Pericardium No pericardial effusion. Aorta Normal aortic annulus size. IVC Inferior vena cava not visualized. CONCLUSIONS Normal left ventricular size and systolic function, EF 56.5%.no regional wall motion abnormalities. . Bioprosthetic valve in the mitral position appears to be well- seated. Peak gradient across the valve was 20 mmHg with a mean gradient of 6 mmHg. Moderately increased left atrial size. Thickened aortic valve. Trace to mild aortic valve regurgitation. There is no pericardial effusion. There are no intracardiac masses. Comparison with the previous study is difficult because of the difference in the technical quality. Dr Mian Rios MD [facility] (Electronically Signed) Final Date: 01 March 2025 19:33 S
== END 2025-02-28 09:40 | disposition home or self-care (01) ==
LOC: RAD 09:40
PROVIDERS: PCP Family Medicine; Visit Provider Family Medicine
DX: I50.33 Acute on chronic diastolic (congestive) heart failure (principal); Z95.2 Presence of prosthetic heart valve; I51.7 Cardiomegaly; I35.1 Nonrheumatic aortic (valve) insufficiency; I35.8 Other nonrheumatic aortic valve disorders
CPT/HCPCS: 93306

== ENCOUNTER → 2025-03-05 10:55 | Outpatient (BNVA) | payer MEDICARE, SELFPAY | PROVIDERS: PCP Family Medicine; Visit Provider Family Medicine | DX: I50.33 Acute on chronic diastolic (congestive) heart failure (principal); I48.0 Paroxysmal atrial fibrillation; E78.2 Mixed hyperlipidemia; E03.9 Hypothyroidism, unspecified; I10 Essential (primary) hypertension | CPT/HCPCS: 80053; 80061; 83735; 84439; 84443; 84481; 85025 ==

== ENCOUNTER 2025-03-20 06:00 | Emergency (ER) | payer MEDICARE, SELFPAY ==
--- OUTSIDE RECORDS SUMMARY | 2019-04-26 03:25 | XMS_ITS | Continuity of Care Document ---
Author Organization [facility] Address [address] [place] [address] Phone Care Team Providers Care Poiser Balance Name Role Phone Villela Brittny MCKEON Unavailable Unavailable Allergies, Adverse Reactions, Alerts Substance Reaction Status Criticality No Known Allergies Active No Inform ation Medications Medication Instructions Dosage Effective Dates (start - stop) Status Comments EFFEXOR XR (unknown strength) Not Available - Active Procedures Procedure Date Offic/outpt E&m Estab Low-mod 0 Offic/outpt E&m Estab Low-mod 0 Simpl Repr Sclp/trunk; 2.5 Cm/ 20 Surgical Trays Offic/outpt E&m Estab Mod-hi 2 20 Td Preservative Free 7yrs And Older Immuniz Admin; 1/combo Vacc/to 20 Offic/outpt E&m Estab Mod-hi 2 19 Service(s) provided in the office during regularly Offic/outpt E&m Estab Mod-hi 2 18 Services provided in an urgent care cent er Dexamethasone Na Phosphate 1 Mg 018 Therapeutic, Prophylactic, Or Diagnostic Inj Sub Q Kenalog 10 Mg Offic/outpt E&m New Mod Sever 8 Services provided in an urgent care [facility] er Advance Directives Directive Yes / No Effective Date File Name No Information Encounters Encounter Description Practice Location Reason(s) For Visit Diagnoses Date Provider Providers Copied on Encounter Offic/outpt E&m Estab Low-mod [facility], [address], [place], [place], [id number], [place] tel:[phone] [facility] [place] joint or extremity pain (chief complaint) Right leg painRight leg swelling 0 Villela [facility]. [address], [place], [place], [id number], [place]. tel:[phone] Offic/outpt E&m Estab [facility], [address], [place], [place], [id number], [place] tel:[phone] [facility] [place] Wound check (chief complaint) Laceration of left hand without foreign body, subsequent encounter 0 No Information Offic/outpt E&m Estab [facility], [address], [place], [place], [id number], [place] tel:[phone] [facility] [place] Laceration (chief complaint) Laceration of left hand without foreign body, [facility] No Information Offic/outpt E&m Estab [facility] 2 [facility], [address], [place], [place], [id number], [place] tel:[phone] [facility] [place] congestion/ rhinitis (chief complaint) Acute maxillary sinusitis, recurrence not specifie 9 No Information Offic/outpt E&m Estab [facility] 2 [facility], [address], [place], [place], [id number], [place] tel:[phone] [facility] [place] sinus symptoms (chief complaint)c ough (chief complaint) Acute recurrent maxillary sinusitisEnviron mental allergiesEnviron mental allergies 8 Sancho Evans. [address], [place], [place], [id number], [place]. tel:[phone] Offic/outpt E&m [facility], [address], [place], [place], [id number], [place] tel:[phone] [facility] [place] eye problem (chief complaint) Subconjunctival hemorrhage of right eye 8 Stefanie Sharif. [address], [place], [place], [id number], [place]. tel:[phone] Family History Family Member Type Diagnosis Age At Onset No Information Immunizations Vaccine Date Status Comments Td, preservative free, (7 yr s and older) completed Source: Source Unspe cified Td, preservative free, (7 yr s and older) completed Source: Source Unspe cified Payers Payer name Insurance type Covered green party ID Authoriza tion(s) [place] [id number] Social History Type Description Quantity Date Captured Comments Alcohol Use Details No Caffeine Use Details Unknown Tobacco Use Status No Information Smoking Status Former smoker Non-Smoking Tobacco Use Details : No Details Available : No Details Available Sex Female Vital Signs Date / Time: Height Weight BMI Pulse Rate Blood Pressure Temperature Respiratory Rate Body Surface Area Head Circumference Head Circ. Percentile Wt./Raimundo. Percentile BMI percentile Pulse Ox Inhaled Ox 10:43 AM 65.00 in 72.575 kg (160.00 lbs) 26.6 3 kg/m eter (2) 100 /min 112/65 mm[Hg] 98.40 F 16 /min 1.82 meter(2) 96 % Chief Complaint And Reason For Visit From encounter dated 04/26/2019 09:25'. joint or extremity pain (chief complaint). Description: Onset: 5 days ago. Severity level is mild-moderate. It occurs constantly. Location: right calf. The pain is aching and dull. Context: there is no injury. Associated symptoms include swelling. Pertinent negatives include joint tenderness and limping. Additional information: NO HX CLOTS. 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 NO CP OR SOB. Reason For Referral Reason For Referral No Information History Of Present Illness Encounter Date Complaint History Of Prese nt Illness joint or extremity pain Onset: 5 days ago. Severity level is mild-moderate. It occurs constantly. Location: right calf. The pain is aching and dull. Context: there is no injury. Associated symptoms include swelling. Pertinent negatives include joint tenderness and limping. Additional information: NO HX CLOTS. 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 NO CP OR SOB. Wound check This is a follow up visit. The injury occurred 4 days ago. Symptoms related to the injury have improved. Date of last tetanus: 03/29/2019. The patient denies any aggravating factors. The patient had a response to SUTURE. The injury is associated with joint pain. The patient denies any decreased mobility, fever, localized swelling and rash. Wound check (comments) 5 SUTURES PLACED LEFT HAND ; WOUND CHECK; NO COMPLAINTS Laceration The injury occur red on 03/29/2019. Symptoms related to the laceration remain unchanged. The injury was not work related. Mechanism of injury details: L PALM LAC FROM BROKEN VASE. The patient has a laceration on the left palm, measuring 1.0000 cm and is described as SEMICIRCULAR, bleeding. The patient has a wound on the left, left palm, measuring 1.2500 cm and is described as bleeding. The patient denies any aggravating factors. Interventions the patient has tried have not provided any relief. The patient denies any associated symptoms. Laceration (comments) LAST TETAN US - UNKNOWN Functional Status Date Functional Assessmen t No Information Instructions Date Instruction Additional Infor rafael NO SIGN OF INFECTION CLEAN GENTLY WITH SOAP AND WATER ONLYKEEP COVERED WHEN OUT AND ABOUTWHEN AT HOME RELAXING, LEAVE OPEN TO THE AIR TO DRY OUTRECHECK FOR ANY SIGN OF INFECTIONOTHERWISE, SUTURE REMOVAL IN 3-5 DAYS Related to Laceration of left hand without foreign body, subsequent encounter LAC: KEEP DRESSING C LEAN AND DRY. DO NOT IMMERSE WOUND IN WATER. YOU MAY SHOWER AFTER 24 HOURS. LEAVE INITIAL DRESSING IN PLACE TODAY, THEN REMOVE AND USE A NEW DRY DRESSING EACH DAY UNTIL WELL HEALED. YOU MAY APPLY SMALL AMOUNT OF BACITRACIN/NEOSPORIN OR VASELINE TO YOUR WOUND THE FIRST 2-3 DAYS WHENEVER YOU CHANGE YOUR DRESSING/BANDAID. DO NOT APPLY A TOPICAL ANTIBIOTIC OR OTHER WOUND CARE PRODUCT AFTER THE 3RD DAY. RETURN TO URGENT CARE FOR WOUND CHECK IN 3 DAYS. Related to Laceration of left hand without foreign body, initial encounter Assessments Type Assessment Date assessment Right leg pain assessment Right leg swelling Mental Status Date Cognitive Assessment Orientation - [place] ed to time, place, person, situation. Patient Care Teams Name Effective Dates (start - stop) Status Members No Information
[2025-03-20 06:03] VITALS: BP 135/95; PULSE 86; RESP 20; TEMP 36.8; O2SAT 93; BMI 29.9
--- NOTE | 2025-03-20 06:04 | XR_ITS ---
WS: [id number] Portable AP upright chest, 03/20/2025 Clinical Data: Shortness of breath Comparison: Portable chest, 01/25/2025 Findings: There is a patchy opacity in the right middle lobe extending over the right diaphragm which could represent atelectasis and/or minimal pneumonia. No nodules, masses or effusions are seen. The heart is enlarged. The pulmonary vascularity is not increased. No pneumothorax is seen. There are artificial heart valves. Midline sternotomy sutures and a 2-lead cardiac pacemaker are in the same position. The aortic arch and descending thoracic aorta show tortuosity. XR/XR chest 1V portable [id number] Impression: 1. Minimal patchy opacity in right middle lobe overlying right diaphragm. 2. Cardiomegaly, heart valve replacement, atherosclerosis and cardiac pacemaker .
--- OUTSIDE RECORDS SUMMARY | 2025-03-20 06:08 | XMS_ITS | Clinical Summary ---
Author Organization [facility] Address [address] [address] Phone Care Team Providers Care Care Manager Name Role Phone Non-Staff, Physician Primary Care [...] Active Immunizations Immunization Administration Dates Next Due ([place]sb)(12 YR UP) COVID-19 VACCINE - EMERGENCY USE AUTHORIZATION, MRNA, [id number](PF) 30 MCG/0.3 ML IM SUSP 07/25/2020,2020 Social History Tobacco Use Types Packs/Day Years Used Date Smoking Tobacco: Former Cigarettes 0 Q uit: 03/27/2007 Smokeless Tobacco: Never Comments:Quit smokin.5 p acks/day hx. 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
--- NOTE | 2025-03-20 06:09 | ECG_ITS ---
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
--- NOTE | 2025-03-20 06:13 | ED_ITS ---
HPI - SOB/Dyspnea 2 General: Chief Complaint: Shortness of Breath/Dyspnea Stated Complaint: cough, weakness, trouble breathing Time Seen by Provider: 03/20/25 06:03 History of Present Illness: HPI Narrative: 74-year-old female with a history of sachi ral valve replacement, pacemaker placement, chronic anticoagulation on Eliquis, atrial fibrillation, hypertension, history of hyperlipidemia, restless leg syndrome and anxiety who presents emergency room with cough and shortness of breath. She says the cough been going on for 3 days or so but was much worse yesterday. She says it is caused her to be exhausted. No chest pain. No abdominal pain. No vomiting. No fevers. No altered mental status. No focal motor deficits. Related Data Home Medications ?Medication ?Instructions ?Recorded ?Confirmed loratadine 10 mg tablet 10 mg PO DAILY PRN 02/21/23 03/12/25 Previous Rx's ?Medication ?Instructions ?Recorded metoprolol tartrate 25 mg tablet 25 mg PO BID 30 days #60 tabs 01/30/25 fluticasone propionate 50 2 spray intranasal BID PRN n owen 02/04/25 mcg/actuation nasal congestion #16 grams spray,suspension (Flonase Allergy Relief) apixaban 5 mg tablet (Eliquis) 5 mg PO BID #60 tabs cyclobenzaprine 10 mg tablet 10 mg PO TID PRN muscle s pasm 90 02/19/25 days #270 tabs gabapentin 100 mg capsule 200 mg (2 x 100 mg) PO DAILY pain 02/19/25 90 days #180 caps pramipexole 0.25 mg tablet See Rx Instructions .Route 02/19/25 .COMPLEX #180 tabs venlafaxine 150 mg 150 mg PO DAILY 90 days #90 caps 02/19/25 capsule,extended release 24 hr benzonatate 200 mg capsule 200 mg PO TID PRN cough #30 caps 03/20/25 dexamethasone 6 mg tablet 6 mg PO DAILY 5 days #5 tabs 03/20/25 doxycycline hyclate 100 mg capsule 100 mg PO BID 7 day s #14 caps 03/20/25 Allergies Allergy/AdvReac Type Severity Reaction Status Date / Time mold Allergy Mild ALGY-Nasal Verified 03/12/25 11:17 Discharge Review of Systems 2 Narrative: Constitutional symptoms: Negative except as documented in HPI. Skin symptoms: Negative except as documented in HPI. Eye symptoms: Negative except as documented in HPI. ENMT symptoms: Negative except as documented in HPI. Respiratory symptoms: Negative except as documented in HPI. Cardiovascular symptoms: Negative except as documented in HPI. Gastrointestinal symptoms: Negative except as documented in HPI. Genitourinary symptoms: Negative except as documented in HPI. Musculoskeletal symptoms: Negative except as documented in HPI. Neurologic symptoms: Negative except as documented in HPI. Psychiatric symptoms: Negative except as documented in HPI. Endocrine symptoms: Negative except as documented in HPI. PFSH ED 2 PFSH: Medical History (Updated 03/20/25 @ 07:50 by Mi Witt MD) Levothyroxine sodium toxicity History of COVID-19 Pacemaker Dual chamber pacemaker 04/09/2020 @ [facility] Mitral valve regurgitation Acute on chronic diastolic congestive heart failure, NYHA class 3 Mixed hyperlipidemia Restless leg syndrome Anxiety Former smoker History of mitral valve prolapse Surgical History H/O tricuspid valve repair 03/31/2020 at [facility] History of mitral valve replacement with bioprosthetic valve 03/31/2020 @ [facility] for mitral valve prolapse with severe mitral regurgitation History of tonsillectomy Family History Grandmother Diabetes Father Heart disease Hyperlipidemia Hypertension Grandfather Cancer Social History Smoking and tobacco/nicotine status: former use of tobacco/nicotine Quit status (tobacco/nicotine): has quit using Year quit tobacco: 2006 Alcohol intake: never Substance/Drug Use: never Adopted: No Caregiver/support person: No Lives independently: No Household members: spouse Housing: House Marital status: service: No Current occupational status: retired Sexually active: Yes Do you think of yourself as: Straight/Heterosexual Current gender identity: Female Female Reproductive History: Spontaneous abortions: No Physical Exam 2 Narrative: EXAM NARRATIVE: General: Alert, no acute distress. Skin: Warm, dry. Head: Normocephalic, atraumatic. Neck: Supple, trachea midline. Eye: Extraocular movements are intact. Ears, nose, mouth and throat: mucosa moist. Cardiovascular: Regular, Normal peripheral perfusion. Respiratory: Lungs are clear to auscultation, respirations are non-labored, breath sounds are equal, Symmetrical chest wall expansion. Gastrointestinal: Soft, Nontender, Non distended Musculoskeletal: Normal ROM, no deformity. Neurological: Alert and oriented, No focal neurological deficit observed. Psychiatric: Cooperative, appropriate mood & affect. Course 2 Vital Signs: Vital signs: Vital Signs Temperature 98.3 F 03/20/25 06:03 Pulse Rate 95 03/20/25 08:08 Respiratory Rate 20 H 03/20/25 06:03 Blood Pressure 140/75 03/20/25 08:08 Pulse Oximetry 91 03/20/25 08:08 Oxygen Delivery Me thod Room Air 03/20/25 07:30 MDM - SOB/Dyspnea Medical Decision Making medical decision making Patient's reason for coming to the emergency room: Cough, shortness of breath Social determinants: Patient is retired I reviewed the patient's medical record. 74-year-old female with a history of mitral valve replacement, pacemaker placement, chronic anticoagulation on Eliquis, atrial fibrillation, hypertension, history of hyperlipidemia, restless leg syndrome and anxiety I reviewed the patient's current home meds Patient is anticoagulated on Eliquis Alternate historians: None Differential diagnosis for patient with shortness of breath includes but is not limited to and based on the above HPI, review of systems and physical exam: Pneumonia. Bronchitis. Asthma or COPD with acute exacerbation. Acute coronary syndrome / [place]. Pulmonary embolism. Anxiety. Congestive heart failure. Viral infections including influenza and Covid-19. Atrial fibrillation. Anxiety. Pleural effusion. Pneumothorax. Orders placed to evaluate differential diagnosis based on the above differential, HPI and physical exam EKG. Rate 82. Time 6:09 AM atrial fibrillation with controlled rate, No ST-T changes, no ectopy, This was reviewed and interpreted by myself the ER physician at 6:12 AM Repeat EKG: Time 7:19 AM. Rate 77. Atrial fibrillation with controlled rate, No ST-T changes, This was reviewed and interpreted by myself the ER physician at 7:23 AM. Patient remains in atrial fibrillation but now has some occasional paced beats. Chest x-ray: Pacemaker in place. Sternotomy wires. Mitral valve hardware. Possibly a mild infiltrate which would be an early pneumonia. This was reviewed and interpreted by myself the emergency room physician. I also reviewed the radiology report. Lab Review: Laboratory results were reviewed and interpreted by myself the emergency room physician. Mild leukocytosis. No anemia. No renal failure. Flu COVID and RSV are negative. Troponin is negative. proBNP is mildly elevated but not much above her baseline. Assessment of risk: Level of risk: Hospitalization considerations: Reexamination: Patient continues to have a fairly frequent cough. I did give her some Tessalon Perles. Decadron. No oxygen requirements. No increased work of breathing. Assessment and plan: Upper respiratory infection ?Home on doxycycline, Decadron and Tessalon Perles. - Discharged home - Discussed plan with patient. Answered any questions. - Evaluation and treatment of this problem were appropriate in the emergency setting. Lab Data 03/20/25 06:15 03/20/25 06:15 Labs/Radiology: Radiology Impressions Chest X-Ray 03/20/25 06:04 Impression: 1. Minimal patchy opacity in right middle lobe overlying right diaphragm. 2. Cardiomegaly, heart valve replacement, atherosclerosis and cardiac pacemaker. Laboratory Results WBC 12.18 10^3/uL (3.29-11.43) H 03/20/25 06:15 RBC 5.03 10^6/uL (3.85-5.65) 03/20/25 06:15 Hgb 14.00 g/dL (11.27-16.99) 03/20/25 06:15 Hct 43.9 % (36-47) 03/20/25 06:15 MCV 87.3 fl (85-98) 03/20/25 06:15 MCH 27.8 pg (27-33) 03/20/25 06:15 MCHC 31.9 g/dL (30-55) 03/20/25 06:15 RDW 14.3 % (12.1-15.1) 03/20/25 06:15 Plt Count 148 10^3/cmm (157-399) L 03/20/25 06:15 MPV 12.4 fL (7.4-10.4) H 03/20/25 06:15 Neut % (Auto) 79.2 % 03/20/25 06:15 Lymph % (Auto) 10.7 % 03/20/25 06:15 Otero % (Auto) 8.7 % 03/20/25 06:15 Eos % (Auto) 0.9 % 03/20/25 06:15 Baso % (Auto) 0.2 % 03/20/25 06:15 Neut # (Auto) 9.64 10^3/uL (1.8-7.7) H 03/20/25 06:15 Lymph # (Auto) 1.3 10^3/uL (0.8-4.8) 03/20/25 06:15 Otero # (Auto) 1.1 10^3/uL (0.2-0.9) H 03/20/25 06:15 Eos # (Auto) 0.1 10^3/uL (0.0-0.8) 03/20/25 06:15 Baso # (Auto) 0.0 10^3/uL (0.0-0.1) 03/20/25 06:15 Nucleated RBC % (auto) 0 % 03/20/25 06:15 Nucleated RBCs # 0.0 /100WBC 03/20/25 06:15 Sodium 134 mmol/L (136-145) L 03/20/25 06:15 Potassium 4.1 mmol/L (3.5-5.1) 03/20/25 06:15 Chloride 99 mmol/L (98-107) 03/20/25 06:15 Carbon Dioxide 23 mmol/L (22-29) 03/20/25 06:15 Anion Gap 16.1 (5-19) 03/20/25 06:15 BUN 13 mg/dL (8-23) 03/20/25 06:15 Creatinine 0.7 mg/dL (0.5-0.9) 03/20/25 06:15 GFR Calculation Not Reportable 03/20/25 06:15 Glucose 143 mg/dL (65-115) H 03/20/25 06:15 Calculated Osmolality 281 mOsm/kg (285-295) L 03/20/25 06:15 Lactic Acid 1.7 mmol/L (0.5-2.2) 03/20/25 06:15 Calcium 9.3 mg/dL (8.5-10.5) 03/20/25 06:15 Total Bilirubin 0.8 mg/dL (0.15-1.2) 03/20/25 06:15 AST 46 U/L (0-32) H 03/20/25 06:15 ALT 44 U/L (0-33) H 03/20/25 06:15 Alkaline Phosphatase 85 U/L (35-105) 03/20/25 06:15 Troponin T Baseline 7 ng/L (0-10) 03/20/25 06:15 Troponin T 60 Minute 7.56 ng/L (0-10) 03/20/25 07:12 Delta Troponin T 0.56 ABS# (0-10) 03/20/25 07:12 NT-Pro-B Natriuret Pep 2121 pg/mL (0-450) H 03/20/25 06:15 Total Protein 7.5 g/dL (6.6-8.7) 03/20/25 06:15 Albumin 4.4 g/dL (3.5-5.2) 03/20/25 06:15 Globulin 3.1 g/dL (1.3-4.6) 03/20/25 06:15 Influenza A (PCR) Negative (Negative) 03/20/25 06:15 Influenza Type B (PCR) Negative (Negative) 03/20/25 06:15 RSV (PCR) Negative (Negative) 03/20/25 06:15 SARS-CoV-2 (PCR) Negative (Negative) 03/20/25 06:15 All radiology interpretation(s) finalized by discharge Discharge Plan Discharge Patient Disposition: Home Clinical Impression: Acute upper respiratory infection Condition: Stable Prescriptions: New benzonatate 200 mg capsule 200 mg PO TID PRN (Reason: cough) Qty: 30 0RF doxycycline hyclate 100 mg capsule 100 mg PO BID 7 Days Qty: 14 0RF dexamethasone 6 mg tablet 6 mg PO DAILY 5 Days Qty: 5 0RF No Action loratadine 10 mg tablet 10 mg PO DAILY PRN venlafaxine 150 mg capsule,extended release 24hr 150 mg PO DAILY 90 Days Qty: 90 2RF pramipexole 0.25 mg tablet See Rx Instructions .ROUTE .COMPLEX Qty: 180 2RF Dose Instruction: TAKE 1 TABLET BY MOUTH TWICE DAILY Rx Instructions: TAKE 1 TABLET BY MOUTH TWICE DAILY gabapentin 100 mg capsule 200 mg PO DAILY 90 Days Qty: 180 2RF cyclobenzaprine 10 mg tablet 10 mg PO TID PRN (Reason: muscle spasm) 90 Days Qty: 270 2RF Eliquis 5 mg tablet 5 mg PO BID Qty: 60 6RF metoprolol tartrate 25 mg tablet 25 mg PO BID 30 Days Qty: 60 5RF fluticasone propionate [Flonase Allergy Relief] 50 mcg/actuation spray,suspension 2 spray intranasal BID PRN (Reason: nasal congestion) Qty: 16 0RF Rx Instructions: administer into each nostril Discharge Orders: Discharge ED (Routine); Ordered 03/20/25 Ordered By: Mi Witt Referrals: Bernie Jose MD [Primary Care Provider, Family Practice] Discharge Diet: Usual diet Discharge Activity: Increase activity as tolerated Patient Instructions: Acute Bronchitis (ED), Opioid Safety, Pain Management, Patient Portal & Kaia Instructions Activity Restrictions/Additional Instructions: Thank you for choosing [facility] for your healthcare needs today. You have been screened and evaluated and felt safe for discharge. Health conditions do change or evolve sometimes and as such it is important that you follow up with your Primary Doctor to be re checked, 3-5 days is a general good time frame for follow up. You are always welcome to return to the ED for re assessment if your symptoms are worsening or you have new concerns. (Please note that included in your discharge packet is information concerning opioid safety and pain management. This information is given to all patients who are discharged from the ER regardless of their discharge diagnosis or the medicines they usually take or are prescribed.) Print Language: [place] Arabian Coding Level of Care Code ED Pot Annealer for Irma Fermin
[2025-03-20 06:34] LABS: Hematocrit 43.9 % (36-47); Hemoglobin 14.00 g/dL (11.27-16.99); Mean Corpuscular HGB Conc 31.9 g/dL (30-55); Mean Corpuscular Hemoglobin 27.8 pg (27-33); Mean Corpuscular Volume 87.3 fl (85-98); Nucleated Red Blood Cells % 0 %; Platelet Count 148 10^3/cmm (157-399); Red Blood Count 5.03 10^6/uL (3.85-5.65); White Blood Count 12.18 10^3/uL (3.29-11.43)
[2025-03-20 06:55] LABS: Lactic Sepsis W/Reflex 1.7 mmol/L (0.5-2.2); Troponin(5th) Baseline 7 ng/L (0-10)
[2025-03-20 06:57] VITALS: BP 137/85; PULSE 88; O2SAT 92
[2025-03-20 07:03] LABS: Alanine Aminotransferase 44 U/L (0-33); Albumin Level 4.4 g/dL (3.5-5.2); Alkaline Phosphatase 85 U/L (35-105); Anion Gap 16.1 (5-19); Aspartate Amino Transferase 46 U/L (0-32); Blood Urea Nitrogen 13 mg/dL (8-23); Calcium 9.3 mg/dL (8.5-10.5); Carbon Dioxide 23 mmol/L (22-29); Chloride 99 mmol/L (98-107); Creatinine Clr Calc Pharmacy 64.1311; Globulin 3.1 g/dL (1.3-4.6); Glucose 143 mg/dL (65-115); NT Pro B Type Natriuretic Pept 2121 pg/mL (0-450); Osmolality Calculated 281 mOsm/kg (285-295); Potassium 4.1 mmol/L (3.5-5.1); Sodium 134 mmol/L (136-145); Total Protein 7.5 g/dL (6.6-8.7)
--- NOTE | 2025-03-20 07:08 | ECG_ITS ---
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: : 1950 Requested By: Mi Robertson Order Number: [id number] Reading MD: SERENE HOWE Measurements Intervals [place] Rate: 77 P: 0 [place]: 0 QRS: -23 QRSD: 89 T: 5 QT: 358 QTc: 406 Interpretive Statements ATRIAL FIBRILLATION ELECTRONIC VENTRICULAR PACEMAKER -- CONTOUR ANALYSIS BASED ON INTRINSIC RHYTHM ANTEROSEPTAL MYOCARDIAL INFARCTION , OF INDETERMINATE AGE [40+ ms Q WAVE IN V1-V4] Compared to ECG 03/20/2025 06:09:26 Myocardial infarct finding now present Atrial fibrillation no longer present Left-axis deviation no longer present T-wave abnormality no longer present Electronically Signed On 03-20-2025 20:35:59 BLOCK BREAKER OPERATOR by SERENE HOWE [email or web address]
[2025-03-20 07:30] VITALS: BP 121/60; PULSE 94; O2SAT 91
[2025-03-20 07:36] LABS: Respiratory Syncytial Virus Ce NEGATIVE (Negative); SARS-CoV-2 PCR NEGATIVE (Negative)
[2025-03-20 08:08] VITALS: BP 140/75; PULSE 95; O2SAT 91
== END 2025-03-20 08:17 | disposition home or self-care (01) ==
PROVIDERS: Emergency Provider Emergency Medicine; PCP Family Medicine
DX: J06.9 Acute upper respiratory infection, unspecified (principal); Z11.52 Encounter for screening for COVID-19; Z79.01 Long term (current) use of anticoagulants; Z87.891 Personal history of nicotine dependence; Z95.0 Presence of cardiac pacemaker; E78.2 Mixed hyperlipidemia
CPT/HCPCS: 36415; 71045; 80053; 83605; 83880; 84484; 85025; 87040; 87637; 93005; 96374; 99285; J1100; J9999

== ENCOUNTER 2025-03-22 15:23 | Emergency (ER) | payer MEDICARE, SELFPAY ==
--- NOTE | 2025-03-22 15:25 | ECG_ITS ---
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 Operator: : 1950 Requested By: Calista Celis Order Number: [id number] Reading MD: SERENE HOWE Measurements Intervals [place] Rate: 72 P: 0 [place]: 0 QRS: -36 QRSD: 98 T: -19 QT: 387 QTc: 424 Interpretive Statements ELECTRONIC VENTRICULAR PACEMAKER -- CONTOUR ANALYSIS BASED ON INTRINSIC RHYTHM LEFT AXIS DEVIATION [QRS AXIS < -30] NONSPECIFIC ST & T-WAVE ABNORMALITY Compared to ECG 03/20/2025 07:19:29 Left-axis deviation now present T-wave abnormality now present Atrial fibrillation no longer present Myocardial infarct finding no longer present Electronically Signed On 03-24-2025 23:04:04 SATELLITE DISH REPAIRER by SERENE HOWE [email or web address]
--- NOTE | 2025-03-22 15:26 | XRR_ITS ---
PROCEDURE INFORMATION: Exam: XR Chest Exam date and time: 03/22/2025 4:58 PM Age: 74 years old Clinical indication: Shortness of breath; Prior Surgery; Surgery Date: 6+ months; Surgery Type: CABG, valve replacement, pacemaker; Additional Info: SOB TECHNIQUE: Imaging protocol: Radiologic exam of the chest. Views: 1 view. COMPARISON: 1. CR XR chest 1V portable [id number] 03/20/2025 6:08 AM 2. CR XR chest 1V portable [id number] 01/25/2025 12:58 PM FINDINGS: Tubes, catheters and devices: Left-sided cardiac pacemaker is in place with AV sequential leads. Lungs: Lungs are well aerated. Pulmonary vascularity is normal. No suspicious pulmonary nodule/s. No focal consolidation is appreciated. Pleural spaces: No pleural effusion. No pneumothorax. Heart/Mediastinum: Mediastinal vascular clips and markers are present status post prior CABG. Probable mitral valve replacement marker in place. Left atrial appendage clamp is in place. Moderate cardiomegaly is noted. Bones/joints: Wire sutures are present in the sternum. XR/XR chest 1V portable [id number] IMPRESSION: 1. Cardiomegaly. No acute disease. 2. Multiple postsurgical findings. 3. No change compared with prior study.
--- OUTSIDE RECORDS SUMMARY | 2025-03-22 15:27 | XMS_ITS | Clinical Summary ---
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
[2025-03-22 15:32] VITALS: BP 123/76; PULSE 70; RESP 15; TEMP 36.6; O2SAT 97; BMI 29.9
[2025-03-22 17:19] VITALS: PULSE 71; O2SAT 97
--- NOTE | 2025-03-22 17:21 | ED_ITS ---
HPI - URI/Sore Throat General: Chief Complaint: Shortness of Breath/Dyspnea Stated Complaint: SOB Time Seen by Provider: 03/22/25 16:52 Source: patient Mode of arrival: ambulatory Limitations: no limitations History of Present Illness: Patient is a 74-year-old female here requesting an albuterol inhaler. Patient was seen here in the ED 2 days ago with a complaint of viral URI-like symptoms. She states she is still having a productive cough and chest congestion. She was placed on doxycycline, tessalon perles, and dexamethasone. She states the provider talked to her about an inhaler but when she went to the pharmacy, there was not a prescription for one. Patient states that the only thing she is requesting today. She states her productive cough is keeping her up all night. She is doing elderberry syrup and other old time remedies . She does feel slightly short of breath. Vital signs are stable upon arrival. No fevers. MD elicited complaint: other (chest congestion, cough) Onset (ago): day(s) Severity: moderate Able to tolerate fluids by mouth: Yes Exacerbating factors: nothing Relieving factors: nothing Associated symptoms: Deny abdominal pain, chills, chest pain, diarrhea, fever(s), headache(s), nausea or vomiting Treatments prior to arrival: antibiotics and other (abx, cough meds) Related Data Home Medications ?Medication ?Instructions ?Recorded ?Confirmed loratadine 10 mg tablet 10 mg PO DAILY PRN 02/21/23 03/12/25 Previous Rx's ?Medication ?Instructions ?Recorded metoprolol tartrate 25 mg tablet 25 mg PO BID 30 days #60 tabs 01/30/25 fluticasone propionate 50 2 spray intranasal BID PRN n owen 02/04/25 mcg/actuation nasal congestion #16 grams spray,suspension (Flonase Allergy Relief) apixaban 5 mg tablet (Eliquis) 5 mg PO BID #60 tabs cyclobenzaprine 10 mg tablet 10 mg PO TID PRN muscle s pasm 90 02/19/25 days #270 tabs gabapentin 100 mg capsule 200 mg (2 x 100 mg) PO DAILY pain 02/19/25 90 days #180 caps pramipexole 0.25 mg tablet See Rx Instructions .Route 02/19/25 .COMPLEX #180 tabs venlafaxine 150 mg 150 mg PO DAILY 90 days #90 caps 02/19/25 capsule,extended release 24 hr benzonatate 200 mg capsule 200 mg PO TID PRN cough #30 caps 03/20/25 dexamethasone 6 mg tablet 6 mg PO DAILY 5 days #5 tabs 03/20/25 doxycycline hyclate 100 mg capsule 100 mg PO BID 7 day s #14 caps 03/20/25 albuterol sulfate 90 mcg/actuation 2 inh inhalation Q4 H PRN shortness 03/22/25 aerosol inhaler of breath or wheezing #6.7 g dameon Allergies Allergy/AdvReac Type Severity Reaction Status Date / Time mold Allergy Mild ALGY-Nasal Verified 03/22/25 15:39 Discharge Review of Systems Const: Denies: fever(s), chills, body aches, fatigue or malaise Card: Denies: chest pain, palpitations, irregular heart rhythm, edema, swelling of feet/ankles, lightheadedness, syncope, pre-syncope or orthopnea Resp: Reports: productive cough, change in phlegm color and chest congestion; Denies: wheezing, pain on inspiration or hemoptysis GI: Denies: abdominal pain, nausea, vomiting or diarrhea : Denies: flank pain, dysuria or hematuria Musc: Denies: neck pain, back pain, extremity pain, extremity swelling, joint pain, joint swelling or joint redness Skin/Breast: Denies: rash Neuro: Denies: headache(s), numbness in extremities, weakness in extremities, sensory changes or dizziness PFSH ED PFSH: Medical History Levothyroxine sodium toxicity History of COVID-19 Pacemaker Dual chamber pacemaker 04/09/2020 @ [facility] Mitral valve regurgitation Acute on chronic diastolic congestive heart failure, NYHA class 3 Mixed hyperlipidemia Restless leg syndrome Anxiety Former smoker History of mitral valve prolapse Surgical History H/O tricuspid valve repair 03/31/2020 at [facility] History of mitral valve replacement with bioprosthetic valve 03/31/2020 @ [facility] for mitral valve prolapse with severe mitral regurgitation History of tonsillectomy Family History Grandmother Diabetes Father Heart disease Hyperlipidemia Hypertension Grandfather Cancer Social History Smoking and tobacco/nicotine status: former use of tobacco/nicotine Quit status (tobacco/nicotine): has quit using Year quit tobacco: 2006 Alcohol intake: never Substance/Drug Use: never Adopted: No Caregiver/support person: No Lives independently: No Household members: spouse Housing: House Marital status: service: No Current occupational status: retired Sexually active: Yes Do you think of yourself as: Straight/Heterosexual Current gender identity: Female Female Reproductive History: Spontaneous abortions: No Physical Exam Const: COMMON NORMALS: no acute distress, average body habitus, patient oriented x3, no limitations, healthy appearing, alert and well nourished GENERAL APPEARANCE: cooperative ORIENTATION/CONSCIOUSNESS: Yes awake, Yes oriented to person, Yes oriented to place and Yes oriented to time Chest: COMMONS NORMALS: normal inspection of the chest and normal palpation of entire chest wall Resp: COMMON NORMALS: normal respiratory effort and clear to auscultation bilaterally AUSCULTATION: clear to auscultation bilaterally OTHER: productive sounding cough Cardio: COMMON NORMALS: regular rate and regular rhythm RATE: regular rate RHYTHM: regular rhythm Back/Pelvis: COMMON NORMALS: thoracic and lumbar spine normal to inspection Extremity: GENERAL: Yes normal exam except as noted Neuro: COMMON NORMALS: patient oriented x3, moves all extremities, no focal motor deficits and no sensory deficits noted SENSORIUM/ORIENTATION: Yes alert, Yes oriented to person, Yes oriented to place and Yes oriented to time Skin: COMMON NORMALS: no rashes or lesions noted GENERAL SKIN EXAM: no rashes or lesions noted Course Vital Signs: Vital signs: Vital Signs Temperature 97.8 F 03/22/25 15:32 Pulse Rate 70 03/22/25 17:38 Respiratory Rate 15 03/22/25 15:32 Blood Pressure 129/76 03/22/25 17:38 Pulse Oximetry 96 03/22/25 17:38 Oxygen Delivery Me thod Room Air 03/22/25 17:19 MDM - URI/Sore Throat Medical Decision Making Patient clinically appears in no acute distress. Her vital signs are normal. Chest x-ray with no change compared to prior study. I do not feel we need to repeat extensive workup that was completed just 2 days ago. She does have a history of atrial fibrillation-rate controlled on anticoagulation/metoprolol. This could be producing some of her shortness of breath although history suggests acute viral upper respiratory infection. Will try albuterol inhaler but was warned this may not help with her cough. Discussed how viral cough can last 2 to 3 weeks if not longer. Differential Diagnosis Likely upper respiratory infection, viral infection and bronchitis Medical Records I reviewed the patient's medical records. Lab Data Radiology Impressions Chest X-Ray 03/22/25 15:26 IMPRESSION: 1. Cardiomegaly. No acute disease. 2. Multiple postsurgical findings. 3. No change compared with prior study. All radiology interpretation(s) finalized by discharge Discharge Plan Discharge Patient Disposition: Home Clinical Impression: Paroxysmal atrial fibrillation, Acute upper respiratory infection Condition: Stable Prescriptions: New albuterol sulfate 90 mcg/actuation HFA aerosol inhaler 2 inh INHALATION Q4H PRN (Reason: shortness of breath or wheezing) Qty: 6.7 0RF No Action loratadine 10 mg tablet 10 mg PO DAILY PRN venlafaxine 150 mg capsule,extended release 24hr 150 mg PO DAILY 90 Days Qty: 90 2RF pramipexole 0.25 mg tablet See Rx Instructions .ROUTE .COMPLEX Qty: 180 2RF Dose Instruction: TAKE 1 TABLET BY MOUTH TWICE DAILY Rx Instructions: TAKE 1 TABLET BY MOUTH TWICE DAILY gabapentin 100 mg capsule 200 mg PO DAILY 90 Days Qty: 180 2RF cyclobenzaprine 10 mg tablet 10 mg PO TID PRN (Reason: muscle spasm) 90 Days Qty: 270 2RF Eliquis 5 mg tablet 5 mg PO BID Qty: 60 6RF metoprolol tartrate 25 mg tablet 25 mg PO BID 30 Days Qty: 60 5RF fluticasone propionate [Flonase Allergy Relief] 50 mcg/actuation s pray,suspension 2 spray intranasal BID PRN (Reason: nasal congestion) Qty: 16 0RF Rx Instructions: administer into each nostril benzonatate 200 mg capsule 200 mg PO TID PRN (Reason: cough) Qty: 30 0RF doxycycline hyclate 100 mg capsule 100 mg PO BID 7 Days Qty: 14 0RF dexamethasone 6 mg tablet 6 mg PO DAILY 5 Days Qty: 5 0RF Discharge Orders: Discharge ED (Routine); Ordered 03/22/25 Ordered By: Elizabeth Evans Referrals: Bernie Jose MD [Primary Care Provider, Family Practice] Patient Instructions: Upper Respiratory Infection (DC), Patient Portal & Ka[facility] Instructions Activity Restrictions/Additional Instructions: Chest x-ray today without change from previous. Vital signs are stable. Will place you on the inhaler in addition to your other medications. This may or may not help with your cough. Sometimes cough associated with viral upper respiratory illnesses can last several weeks. Discussed continued conservative therapies. Recommend follow-up with primary care later this week if you do not feel like you are improving. You may return to the emergency department at anytime for any further concerns you may have. Print Language: Luxembourgish Coding Level of Care Code ED [employer] Helper for Irma Fermin
[2025-03-22 17:38] VITALS: BP 129/76; PULSE 70; O2SAT 96
== END 2025-03-22 17:39 | disposition home or self-care (01) ==
PROVIDERS: Emergency Provider Physician Assistant; PCP Family Medicine
DX: I48.0 Paroxysmal atrial fibrillation (principal); J06.9 Acute upper respiratory infection, unspecified; Z79.01 Long term (current) use of anticoagulants; Z87.891 Personal history of nicotine dependence; Z95.0 Presence of cardiac pacemaker; E78.2 Mixed hyperlipidemia
CPT/HCPCS: 71045; 93005; 99285